=== PATIENT | male | born 1975 | race Caucasian/White ===

== ENCOUNTER → 2019-08-25 14:44 | Outpatient (BNVA) | payer OTHER, SELFPAY | PROVIDERS: PCP Emergency Medicine Emergency Medical Services; Referring Provider Emergency Medicine Emergency Medical Services; Visit Provider Orthopaedic Surgery | DX: M25.512 Pain in left shoulder (principal) | CPT/HCPCS: 73030 ==

== ENCOUNTER 2019-09-01 14:43 | Outpatient (CLI) | payer OTHER, SELFPAY ==
--- NOTE | 2019-09-01 15:34 | CT_ITS ---
WS: [id number] CT LEFT KNEE, NONCONTRAST HISTORY: PAIN TO MULTIPLE SITES Technique: All CT scans at [facility] use at least one of these dose optimization techniq ues: automated exposure control; mA and/or kV adjustment per patient size (includes targeted exams wh ere dose is matched to clinical indication); or iterative reconstruction. DLP: 961.05 mGy-cm. COMPARISON: None available. Normal orientation of the patella with respect to the femur. No fractures. No osteoblastic or osteoly tic lesions. Very slight lateral subluxation of the patella. No osteochondral lesion or loose body. T iny subchondral cyst noted in the lateral tibial plateau. Proximal fibula is normal. No joint effusion. CT/CT knee LT wo con* [id number] IMPRESSION: 1. Unremarkable CT LEFT knee. No acute or healing fractures. 2. Very slight lateral subluxation of the patella may be due to positioning.
--- NOTE | 2019-09-01 15:34 | CT_ITS ---
WS: [id number] CT LEFT ELBOW HISTORY: PAIN TO MULTIPLE SITES Technique: All CT scans at [facility] use at least one of these dose optimization techniq ues: automated exposure control; mA and/or kV adjustment per patient size (includes targeted exams wh ere dose is matched to clinical indication); or iterative reconstruction. DLP: 452.93 mGy-cm. COMPARISON: None available. No displacement, healing or acute fractures. No significant joint space narrowing or erosions. No sof t tissue abnormalities. No osteophyte formation. Muscles are normal size with no atrophy. CT/CT elbow LT wo con* [id number] IMPRESSION: Normal CT LEFT elbow. No fractures or inflammatory arthropathy.
--- NOTE | 2019-09-01 15:34 | CT_ITS ---
WS: [id number] CT LEFT SHOULDER, NONCONTRAST HISTORY: PAIN TO MULTIPLE SITES Technique: All CT scans at [facility] use at least one of these dose optimization techniq ues: automated exposure control; mA and/or kV adjustment per patient size (includes targeted exams wh ere dose is matched to clinical indication); or iterative reconstruction. DLP: 780.79 mGycm COMPARISON: Radiographs 08/25/2019. Subchondral cystic changes are noted over the superior humeral head. No fractures or healed fractures . Humeral head is normally seated at the glenoid. Mild narrowing of the glenohumeral and AC joint. No rib fractures. The visualized lung is clear. No joint effusion. CT/CT shoulder LT wo con* [id number] IMPRESSION: 1. Mild degenerative changes at the glenohumeral joint and AC joint. 2. No acute or healing fracture. 3. Moderate subchondral cystic changes at the humeral head is chronic.
== END 2019-09-01 14:44 | disposition home or self-care (01) ==
PROVIDERS: PCP Emergency Medicine Emergency Medical Services; Visit Provider Emergency Medicine Emergency Medical Services
DX: M19.012 Primary osteoarthritis, left shoulder (principal); M25.512 Pain in left shoulder; M25.562 Pain in left knee; M25.522 Pain in left elbow
CPT/HCPCS: 73200; 73700

== ENCOUNTER 2019-09-01 15:22 | Outpatient (CLI) | payer OTHER, SELFPAY | END 2019-09-01 15:23 | disposition home or self-care (01) | LOC: RADSHAW 15:25 | PROVIDERS: PCP Emergency Medicine Emergency Medical Services; Visit Provider Orthopaedic Surgery | DX: S46.912A Strain of unspecified muscle, fascia and tendon at shoulder and upper arm level, left arm, initial encounter (principal); X58.XXXA Exposure to other specified factors, initial encounter ==

== ENCOUNTER 2019-09-08 11:00 | Outpatient (CLI) | payer OTHER, SELFPAY ==
--- NOTE | 2019-09-08 11:08 | MR_ITS ---
WS: [id number] MRI left shoulder, 09/08/2019 Clinical Data: STRAIN OF LEFT SHOULDER Comparison: CT left shoulder, 09/01/2019, left shoulder x-ray, 08/25/2019. Findings: No rotator cuff tear is seen. Acromioclavicular joint appears to be normal with no impingement or ost eoarthritis. The glenoid labrum is intact with no tear or displacement. There is deformity of the insertion of the rotator cuff suggestive of Hill-Sachs deformity. There are small synovial cysts at the insertion of the rotator cuff. The biceps tendon resides within the bicipital groove and there is no displacement evidence of tendin itis or fluid in the tendon sheath. MR/MR shoulder LT wo con* [id number] Impression: 1. Deformity at the insertion of the greater tuberosity suggestive of Hill-Sach s deformity. 2. Small synovial cysts in humeral head at the insertion of the rotator cuff. 3. Negative for rotator cuff tear. 4. Negative for glenoid labral tear or displacement. 5. Negative for biceps tendinitis or tear.
== END 2019-09-08 11:01 | disposition home or self-care (01) ==
LOC: MRI 11:05
PROVIDERS: PCP Emergency Medicine Emergency Medical Services; Visit Provider Orthopaedic Surgery
DX: S46.912A Strain of unspecified muscle, fascia and tendon at shoulder and upper arm level, left arm, initial encounter (principal); X58.XXXA Exposure to other specified factors, initial encounter; M71.312 Other bursal cyst, left shoulder
CPT/HCPCS: 73221

== ENCOUNTER → 2019-09-21 14:44 | Outpatient (BNVA) | payer OTHER, SELFPAY | PROVIDERS: PCP Emergency Medicine Emergency Medical Services; Referring Provider Emergency Medicine Emergency Medical Services; Visit Provider Specialist | DX: M25.562 Pain in left knee (principal) | CPT/HCPCS: 73560; 73565 ==

== ENCOUNTER → 2019-09-24 09:45 | Outpatient (BNVA) | payer OTHER, SELFPAY | PROVIDERS: PCP Emergency Medicine Emergency Medical Services; Referring Provider Emergency Medicine Emergency Medical Services; Visit Provider Specialist | DX: M25.522 Pain in left elbow (principal) | CPT/HCPCS: 73080 ==

== ENCOUNTER 2019-09-28 14:28 | Outpatient (CLI) | payer OTHER, SELFPAY ==
--- NOTE | 2019-09-28 14:37 | MR_ITS ---
WS: [id number] MRI LEFT KNEE NONCONTRAST TECHNIQUE: Axial PD, coronal PD fat sat, coronal PD, sagittal PD, and sagittal PD fat-sat images obta ined. CLINICAL INFORMATION: PAIN COMPARISON: CT September 01, 2019 FINDINGS: Anterior cruciate ligament is normal. Normal posterior cruciate ligament. Distal quadriceps and brannon la tendons are intact. Hypertrophic patella. Trace prepatellar soft tissue edema. Small amount of chronic appearing signal abnormality involving the posterior horn medial meniscus. La teral meniscus is normal. No acute appearing meniscal tears. Normal patella. No significant chondroma lacia patella. Normal medial and lateral patellar retinaculum. Normal popliteal fossa. Medial and lat eral collateral ligaments are intact. MR/MR knee LT wo con* [id number] IMPRESSION: 1. Normal anterior and posterior cruciate ligaments. 2. No acute appearing meniscal tears. Small amount of chronic appearing signal normality involving the posterior horn medial meniscus. 3. Normal patella and tibial plateau. 4. Normal medial and lateral collateral ligaments.
== END 2019-09-28 14:29 | disposition home or self-care (01) ==
LOC: RADWPI 14:32
PROVIDERS: PCP Emergency Medicine Emergency Medical Services; Visit Provider Specialist
DX: M25.562 Pain in left knee (principal)
CPT/HCPCS: 73721

== ENCOUNTER 2019-10-12 07:44 | Outpatient (CLI) | payer OTHER, SELFPAY ==
--- NOTE | 2019-10-12 08:23 | MR_ITS ---
WS: [id number] MRI LEFT elbow, noncontrast. Multiplanar, multisequence imaging is performed of the LEFT elbow. COMPARISON: LEFT elbow radiograph 09/24/[address] 09/01/2019 Study is degraded by motion artifact. No marrow edema or fractures. Normal alignment at the elbow radha nt. There is a small amount of fluid at the joint. No loose bodies are evident within the fluid. No m uscle edema or atrophy. Biceps tendon in the brachial radialis are normal. There is some increased T2 signal in the anconeus muscle and tendon over the posterior radial head and lateral femoral condyle. Extensor tendon does ap pear to be intact. No edema within the flexor tendons. MR/MR elbow LT wo con* [id number] IMPRESSION: 1. Small amount of fluid at the elbow joint. 2. No fracture or marrow edema. 3. There is a small amount of increased signal and fluid in the anconeus muscl e and partial tear suspected at its insertion to the lateral epicondyle. No ass ociated evidence for lateral epicondylitis which is commonly associated with in jury to the anconeus muscle. 4. Study is limited by motion.
== END 2019-10-12 07:45 | disposition home or self-care (01) ==
LOC: RADWPI 07:48
PROVIDERS: PCP Emergency Medicine Emergency Medical Services; Visit Provider Specialist
DX: M25.522 Pain in left elbow (principal); M25.422 Effusion, left elbow
CPT/HCPCS: 73221

== ENCOUNTER → 2020-01-13 16:03 | Outpatient (BNVA) | payer OTHER, SELFPAY | PROVIDERS: PCP Emergency Medicine Emergency Medical Services; Visit Provider Podiatrist Foot & Ankle Surgery | DX: M79.671 Pain in right foot (principal) | CPT/HCPCS: 73630 ==

== ENCOUNTER 2020-01-14 20:00 | Outpatient (CLI) | payer OTHER, SELFPAY | END 2020-01-14 20:01 | disposition home or self-care (01) | LOC: SLEEP 01-15 09:44 | PROVIDERS: PCP Emergency Medicine Emergency Medical Services; Visit Provider Emergency Medicine Emergency Medical Services | DX: R06.83 Snoring (principal); R53.83 Other fatigue | CPT/HCPCS: 95810 ==

== ENCOUNTER 2020-11-13 21:45 | Emergency (ER) | payer OTHER, MEDICAID, SELFPAY ==
[2020-11-13 21:50] VITALS: BP 123/85; PULSE 90; RESP 16; TEMP 37.1; O2SAT 98; BMI 23.6
--- NOTE | 2020-11-13 21:55 | W.ED.SKABFB ---
HPI - Skin/Abscess/Foreign Bdy General: Chief complaint: Skin/Abscess/Foreign Body Stated complaint: ABSCESS ON BACK OF HEAD/THINKS MAYBE A SPIDER BITE Time Seen by Provider: 11/13/20 21:49 History of Present Illness: HPI narrative: Patient is a 45-year-old male comes to the ED with possible skin infection/spider bite on back of head. Patient says on he noticed he had a sore red bump on the mid occipital region of scalp. He says over the past couple days it has continued to get larger and more painful and red. He reports some minimal purulent drainage. Associated symptoms: Deny chills, fever(s), nausea or vomiting Review of Systems Const: Denies: fever(s), chills or fatigue Eyes: Denies: change in vision or eye discomfort ENMT: Denies: throat pain, odynophagia, nasal discharge or nasal congestion Card: Denies: chest pain, palpitations, edema, swelling of feet/ankles, dyspnea on exertion or orthopnea Resp: Denies: dyspnea, productive cough or non-productive cough GI: Denies: abdominal pain, nausea, vomiting, diarrhea, constipation or hematochezia : Denies: flank pain, difficulty urinating, dysuria or hematuria Musc: Denies: neck pain, back pain or extremity swelling Skin/Breast: Reports: new lesions (On back of scalp likely spider bite.); Denies: rash Neuro: Denies: headache(s), numbness in extremities or weakness in extremities PFS ED PFSH: Social History Smoking and tobacco status: former smoker Alcohol intake: former Physical Exam Const: COMMON NORMALS: no acute distress, patient oriented x3, healthy appearing and alert GENERAL APPEARANCE: cooperative and comfortable HENMT: COMMON NORMALS: normocephalic HEAD & SCALP: normocephalic and scalp lesion left occipital other (Occipital region of scalp?erythema, warmth with small purulent pocket in center of lesion. Tender to palpation. Lesion is indurated and nonfluctuant.) Head lesion size: 1.5 cm MOUTH: Normal oral and palatal mucosa present THROAT: posterior oropharynx normal and uvula midline Neck/C-Spine: COMMON NORMALS: supple GENERAL: Yes normal visual inspection Resp: COMMON NORMALS: normal respiratory effort, No retractions, No use of accessory muscles and clear to auscultation bilaterally AUSCULTATION: clear to auscultation bilaterally Cardio: COMMON NORMALS: regular rate, regular rhythm, S1 normal heart sound present, S2 normal heart sound present, No gallops present (Cardio), No clicks present (Cardio), No murmurs present (Cardio) and Peripheral pulses 2+ throughout RATE: regular rate RHYTHM: regular rhythm HEART SOUNDS: S1 normal heart sound present and S2 normal heart sound present PERIPHERAL PULSES: Peripheral pulses 2+ throughout GI: COMMON NORMALS: Normal to inspection, nondistended, normoactive bowel sounds present, Soft to palpation, non-tender and no masses PALPATION: Yes Soft to palpation : COMMON NORMALS: Yes no CVA tenderness BLADDER/KIDNEY EXAM: Yes no CVA tenderness Back/Pelvis: COMMON NORMALS: no CVA tenderness Extremity: COMMON NORMALS: normal to inspection Neuro: COMMON NORMALS: patient oriented x3 and moves all extremities SENSORIUM/ORIENTATION: Yes alert Skin: NARRATIVE SKIN EXAM: Occipital region of scalp?erythema, warmth with small purulent pocket in center of lesion. Tender to palpation. Lesion is indurated and nonfluctuant. Lesion findings suggestive of potential spider bite with developing cellulitis. GENERAL SKIN EXAM: dry skin Course Vital Signs: Vital signs: Vital Signs Temperature 98.7 F 11/13/20 21:50 Pulse Rate 90 11/13/20 21:50 Respiratory Rate 16 11/13/20 21:50 Blood Pressure 123/85 11/13/20 21:50 Pulse Oximetry 98 11/13/20 21:50 MDM - Skin/Abscess/Foreign Bdy MDM Narrative: Medical decision making narrative: Patient is a 44-year-old male comes to the ED with possible spider bite on occipital region of scalp. Exam findings show lesion on scalp that is indurated nonfluctuant. There is erythema, warmth and small purulent pocket in center of lesion. Tender to palpation. Lesion findings suggestive of potential spider bite with developing cellulitis. Patient was put on a prescription for Bactrim and mupirocin ointment. Patient told to follow-up with PCP in 7 days for reevaluation. Return to ED precautions given. Patient understood and agree with plan. Discharge Plan Discharge Patient Disposition: Home Clinical Impression: Spider bite Qualifiers: Encounter type: initial encounter Injury intent: accidental or unintentional Qualified Code(s): T63.301A - Toxic effect of unspecified spider venom, accidental (unintentional), initial encounter Cellulitis Qualifiers: Site of cellulitis: head Qualified Code(s): L03.811 - Cellulitis of head [any part, except face] Condition: Stable Prescriptions: New Bactrim DS 800-160 mg tablet 1 tab PO BID 7 Days Qty: 14 RF: 0 mupirocin 2 % ointment 1 applic topical BID Qty: 15 RF: 0 No Action cyclobenzaprine 10 mg tablet 10 mg PO TID RF: 0 bupropion HCl 75 mg tablet 75 mg PO QID RF: 0 ibuprofen 800 mg tablet 800 mg PO TID RF: 0 citalopram 40 mg tablet 40 mg PO ONCE RF: 0 Humira 40 mg/0.8 mL syringe kit 40 mg SUBCUT Q14D RF: 0 hydrocodone-acetaminophen [[place]] 5-325 mg tablet 1 tab PO Q8H PRNRF: 0 (DME) Walking high ankle boot with metatarsal bar See Rx Instructions .Route .MEDSUPPLY Qty: 1 RF: 0 (DME) Bilateral Foot Orthoses See Rx Instructions .Route .MEDSUPPLY Qty: 1 RF: 0 Discharge Orders: Discharge ED (Routine); Ordered 11/13/20 Ordered By: Toy Marshall Referrals: Sridhar Membreno DO [Primary Care Provider] - Discharge Diet: Regular Discharge Activity: Resume usual activity Patient Instructions: Cellulitis (ED), Brown Recluse Spider Bite (ED) Activity Restrictions/Additional Instructions: Follow-up with medical provider as directed in 7 to 10 days for reevaluation. Take medications as prescribed. Apply heat or cold pack to help with symptoms. Take your previously prescribed pain medication or Tylenol or ibuprofen for any pain. Return to the ER or your medical provider if condition worsens. Please read and understand discharge instructions. If any questions, please ask. Coding Level of Care Code ED Network Architect Manager for Scarlett Fwalejandro Exam Comprehensive
[2020-11-13] MEDS: sulfamethoxazole-trimeth DS 160-800 mg Tablet 1 TAB PO (22:23)
== END 2020-11-13 22:27 | disposition home or self-care (01) ==
PROVIDERS: Emergency Provider Physician Assistant; PCP Emergency Medicine Emergency Medical Services
DX: T63.301A Toxic effect of unspecified spider venom, accidental (unintentional), initial encounter (principal); L03.811 Cellulitis of head [any part, except face]; Z87.891 Personal history of nicotine dependence
CPT/HCPCS: 99282

== ENCOUNTER → 2020-11-28 13:13 | Outpatient (BNVA) | payer OTHER, SELFPAY | PROVIDERS: PCP Emergency Medicine Emergency Medical Services; Visit Provider Specialist | DX: G43.711 Chronic migraine without aura, intractable, with status migrainosus (principal); M47.812 Spondylosis without myelopathy or radiculopathy, cervical region; R20.0 Anesthesia of skin; R20.2 Paresthesia of skin; Z87.891 Personal history of nicotine dependence | CPT/HCPCS: 99204 ==

== ENCOUNTER → 2020-12-15 14:20 | Outpatient (BNVA) | payer OTHER, SELFPAY | PROVIDERS: PCP Emergency Medicine Emergency Medical Services; Visit Provider Specialist | DX: G43.709 Chronic migraine without aura, not intractable, without status migrainosus (principal); Z87.891 Personal history of nicotine dependence | CPT/HCPCS: 64615; J0585 ==

== ENCOUNTER 2021-02-17 09:26 | Outpatient (CLI) | payer OTHER, SELFPAY ==
--- NOTE | 2021-02-17 09:36 | MR_ITS ---
WS: [id number] MRI CERVICAL SPINE with and without contrast. HISTORY: R20.0 - Anesthesia of skin COMPARISON: None available. Technique: Multiplanar, multisequence with and without contrast imaging of the cervical spine. Straightening of the normal cervical lordosis with slight reversal centered at C5. No marrow edema or acute fracture. Very mild chronic anterior wedging of C5 and C6. C5 retrolisthesis by 3 mm contacts and slightly deforms the ventral cord. Signal within the cervical cord is normal. Visualized posterior fossa is unremarkable. Craniocervical junction, C1 and C2 relationship, odontoid process and soft tissues are normal. C2-C3: Bony osteophyte extends into the RIGHT foramen causing a moderate stenosis. No stenosis on the LEFT. C3-C4: Large disc osteophyte complex in the LEFT foramen causing displacement of the nerve roots and severe LEFT foraminal stenosis. C4-C5: Diffuse osteophytic ridging without stenosis. C5-C6: Mild annular disc bulging. There is diffuse osteophytic ridging encroaching upon the ventral t hecal sac. Moderate-sized disc osteophyte complex in the RIGHT foramen. Moderate RIGHT foraminal and mild LEFT foraminal stenosis. Mild central stenosis due to the osteophytic ridging and disc disease. C6-C7: Diffuse annular disc bulging and osteophytic ridging. Disc osteophyte complexes and the neural foramen. Mild central with severe bilateral foraminal stenosis. C7-T1: Normal. No discitis or osteomyelitis. No enhancing cord lesions. MR/MR cervical spine wo/w [id number] IMPRESSION: 1. Reversal of the normal cervical lordosis at C5-6 with osteophyte contact on the ventral thecal sac. 2. Severe bilateral foraminal stenosis at C6-7 due to disc and osteophyte dise ase with mild central stenosis. 3. Moderate RIGHT foraminal bony stenosis at C2-3. 4. Severe LEFT foraminal stenosis at C3-4 due to disc osteophyte complex. 5. Moderate RIGHT and mild LEFT foraminal stenosis and mild central stenosis a t C5-6. Significant disc osteophyte complex in the RIGHT foramen. 6. No enhancing masses, discitis or osteomyelitis.
[2021-02-17] MEDS: gadobenate dimeglumine 20 mL vial IV (10:29)
== END 2021-02-17 09:27 | disposition home or self-care (01) ==
LOC: RADSHAW 09:32
PROVIDERS: PCP Emergency Medicine Emergency Medical Services; Visit Provider Specialist
DX: R20.0 Anesthesia of skin (principal); M48.02 Spinal stenosis, cervical region; M25.78 Osteophyte, vertebrae
CPT/HCPCS: 72156; A9577

== ENCOUNTER → 2021-03-09 10:40 | Outpatient (BNVA) | payer OTHER, SELFPAY | PROVIDERS: PCP Emergency Medicine Emergency Medical Services; Visit Provider Specialist | DX: G43.709 Chronic migraine without aura, not intractable, without status migrainosus (principal); M47.812 Spondylosis without myelopathy or radiculopathy, cervical region; Z71.89 Other specified counseling; Z87.891 Personal history of nicotine dependence | CPT/HCPCS: 64615; 99214; 99215; J0585 ==

== ENCOUNTER 2021-03-13 13:27 | Outpatient (CLI) | payer OTHER, SELFPAY ==
--- NOTE | 2021-03-13 13:34 | US_ITS ---
WS: [id number] ULTRASOUND THYROID TECHNIQUE: Ultrasound of the thyroid. CLINICAL INFORMATION: FOLLOW UP ON THYROID NODULE COMPARISON: None. FINDINGS: Thyroid: Right and left thyroid lobes are normal in size and echotexture. No thyroid nodules are pres ent. Right thyroid lobe: 4.7 cm x 1.8 cm x 1.4 cm Left thyroid lobe: 4.6 cm x 1.7 cm x 1.2 cm. Isthmus: 0.2 mm. Cervical lymphadenopathy: No lymphadenopathy. Incidental cervical lymph nodes with preserved fatty hi lum. US/US thyroid [id number] IMPRESSION: Normal thyroid ultrasound examination.
== END 2021-03-13 13:28 | disposition home or self-care (01) ==
PROVIDERS: PCP Emergency Medicine Emergency Medical Services; Visit Provider Emergency Medicine Emergency Medical Services
DX: E04.1 Nontoxic single thyroid nodule (principal)
CPT/HCPCS: 76536

== ENCOUNTER → 2021-04-13 08:12 | Outpatient (BNVA) | payer OTHER, SELFPAY | PROVIDERS: PCP Emergency Medicine Emergency Medical Services; Referring Provider Specialist; Visit Provider Orthopaedic Surgery | DX: M47.812 Spondylosis without myelopathy or radiculopathy, cervical region (principal) | CPT/HCPCS: 72050 ==

== ENCOUNTER → 2021-05-01 11:19 | Outpatient (BNVA) | payer OTHER, SELFPAY | PROVIDERS: PCP Emergency Medicine Emergency Medical Services; Visit Provider Orthopaedic Surgery | DX: Z01.812 Encounter for preprocedural laboratory examination (principal); Z20.822 Contact with and (suspected) exposure to COVID-19 | CPT/HCPCS: 87635 ==

== ENCOUNTER 2021-05-05 05:53 | Day surgery (SDC) | payer OTHER, SELFPAY ==
[2021-05-03 09:39] VITALS: BMI 23.6
--- NOTE | 2021-05-03 16:03 | ANES.PREANE2 ---
Pre-Anesthetic Assessment Pre-Anesthetic Assessment: Height/Weight: Height 1.75 m Weight 72.575 kg Preop Diagnosis: cervical spondylosis with myelopathy Proposed Procedure: Operation Date: 05/05/21 07:00 Proposed Procedures p Anterior Cervical Discectomy & Fusion 60208 69894 C5/6 C6/7 37845 76093 89165 M47.812(Not Applicable) - Michael Quintanilla, DO Was Beta Gerald taken within 24 hours: N/A Was Clonidine taken within 24 hours: N/A Social: Social History: Tobacco and No alcohol Exam: Pre-Anes Outpt Exam: alert, oriented x 3 and regular rate & rhythm Airway: Submandibular: WNL Cervical ROM: WNL (Some pain) MP: 2 Dentition: Chipped Additional comments: Poor dentition Pulmonary: Pulmonary: COPD Musc/skel: Musc/skel: OA/DJD Neuropsych: Neuropsych: HERNANDEZ Anesthetic Plan: ASA status: 3 Anesthesia: General Risk of > 500 ml blood loss (7ml/kg in children): No PFSH Anesthesia PFSH: Social History Smoking and tobacco status: former smoker Alcohol intake: former History of recent travel: No Data Anesthesia Cardiac Studies: No Data to Display
[2021-05-05] VITALS (9 sets, daily range): BP systolic 101–116; BP diastolic 63–82; PULSE 75–84; RESP 13–18; TEMP 36.3–36.8; O2SAT 96–100
--- NOTE | 2021-05-05 | XR_ITS ---
WS: [id number] Cervical spine, C-arm fluoroscopy, 05/05/2021 Clinical Data: ACDF Comparison: None. Findings: Dr. Quintanilla performed an anterior cervical disc fusion at C5-C7 with disc spacers at C5-C6 an d C6-C7. XR/XR cervical spine 3V* [id number] Impression: Anterior cervical disc fusion C5-C7 with corresponding disc spacers.
--- NOTE | 2021-05-05 | SCC_ITS ---
Procedure Done: 1. Anterior diskectomy C5/6 2. Anterior discectomy C6/7 3. Insertion of cage C5/6 4. Insertion of Cage C6/7 5. Instrumentation with anterior plate from C5-C7 6. Use of allograft 8.5 seconds of fluoroscopic guidance, for a cumulative dose of 0.88 mGy, was provided to Dr. Quintanilla by the radiology department. C-arm images of the cervical spine were saved for the patient's permanent record. KATIED
--- NOTE | 2021-05-05 06:32 | P.ANESUD_ITS ---
Pre-Anesthetic Update Pre-Anesthetic Assessment: Date of Surgery/Procedure: 05/05/21 Preop Daphne gnosis: cervical spondylosis with myelopathy Proposed Procedure: Operation Date: 05/05/21 07:00 Proposed Procedures p Anterior Cervical Discectomy & Fusion 05518 38928 C5/6 C6/7 39888 17157 22036 M47.812(Not Applicable) - Michael Quintanilla, DO Any changes to Pre-Anesthetic Assessment?: No Last Intake: Intake Last Liquid Date 05/04/21 Last Liquid Time 21:00 Last Solid Date 05/04/21 Last Solid Time 20:00 Vitals: Temperature 98.2 F 05/05/21 06:07 Temperature Source Temporal Artery S can 05/05/21 06:07 Pulse Rate 78 05/05/21 06:07 Respiratory Rate 18 05/05/21 06:07 Blood Pressure 116/82 05/05/21 06:07 Blood Pressure Jennifer n 93 05/05/21 06:07 Pulse Oximetry 96 05/05/21 06:07 Oxygen Delivery Me thod 05/05/21 06:07 Exam: Pre-Anes Outpt Exam: alert, oriented x 3, clear to auscultation bi laterally and regular rate & rhythm Cardiac Studies: No Data to Display
[2021-05-05] MEDS: sodium chloride 0.9% 1,000 ML 30 ML IV (06:46)
--- NOTE | 2021-05-05 06:55 | W.PM.OPSUD ---
Surgery/Procedure H&P Update DATE OF PROCEDURE: May 05, 2021 DATE H&P PERFORMED: 04/13/21 H&P UPDATE INFORMATION: I have reviewed H&P completed within last 30 days, I have examined patient prior to procedure and No changes to prior documentation PREOP DIAGNOSIS: cervical spondylosis with myelopathy PLANNED PROCEDURE: Operation Date: 05/05/21 07:00 Proposed Procedures p Anterior Cervical Discectomy & Fusion 29251 40308 C5/6 C6/7 60858 63845 00515 M47.812(Not Applicable) - Michael Quintanilla DO
--- NOTE | 2021-05-05 09:03 | PM.OP ---
Operative Report Date of procedure: May 05, 2021 Pre-op Diagnosis: cervical spondylosis with myelopathy Post-op diagnosis: same Procedure Done: 1. Anterior diskectomy C5/6 2. Anterior discectomy C6/7 3. Insertion of cage C5/6 4. Insertion of Cage C6/7 5. Instrumentation with anterior plate from C5-C7 6. Use of allograft Surgeon: Michael Quintanilla Anesthesia: General Estimated blood loss (mL): 20 Condition: stable Disposition: PACU Procedure: 1. Anterior diskectomy C5/6 2. Anterior discectomy C6/7 3. Insertion of cage C5/6 4. Insertion of Cage C6/7 5. Instrumentation with anterior plate from C5-C7 6. Use of allograft The patient was taken to the operating room, where he underwent general endotracheal anesthesia without complications. He was then positioned supine on the operating table, and all areas of impingement were well padded. The arms were carefully padded and tucked at his sides. A roll was placed between the shoulder blades.. An x-ray was done to determine the appropriate level for the skin incision. The entire neck was then sterilely prepped and draped in the usual fashion. Neuromonitoring was attached prior to prepping. A transverse skin incision was made and carried down to the platysma muscle. This was then split in line with its fibers. Blunt dissection was carried down medial to the carotid sheath and lateral to the trachea and esophagus until the anterior cervical spine was visualized. A needle was placed into a disc and an x-ray was done to determine its location. The longus colli muscles were then elevated bilaterally with the electrocautery unit. Self-retaining retractors were placed deep to the longus colli muscle. Attention was brought to the C5/6 level that was confirmed on x-ray. A caspar pin was placed into the C5 vertebrae and the C6 vertebrae. The disk space was then distracted. The microscope was then brought in. A radical anterior discectomies were performed at C5/6. This included complete removal of the anterior annulus, nucleus, and posterior annulus. The posterior longitudinal ligament was removed as were the posterior osteophytes. Foraminotomies were then accomplished bilaterally. This was done using a high speed tristan, kerrison rongeurs and curretes Once all of this was accomplished, the curved currette was used to check for any residual compression. The central canal was wide open as were the foramen. A high-speed bur was used to remove the cartilaginous endplates above and below the interspace. Bleeding cancellous bone was exposed. The disc space were measured and appropriate size cage were placed sterilely onto the field. Allograft graft was packed into the cages. The cage was then placed and there was good juxtaposition against the bleeding decorticated surfaces and good distraction of each interspace. Attention was brought to the next interspace. The [place] pins were removed. Bone wax was used to prevent any bleeding from occurring at the pin sites. Attention was brought to the C6/7 level that was confirmed on x-ray. A caspar pin was placed into the C6 vertebrae and the C7 vertebrae. The disk space was then distracted. The microscope was then brought in. A radical anterior discectomies were performed at C6/7. This included complete removal of the anterior annulus, nucleus, and posterior annulus. The posterior longitudinal ligament was removed as were the posterior osteophytes. Foraminotomies were then accomplished bilaterally. This was done using a high speed tristan, kerrison rongeurs and curretes Once all of this was accomplished, the curved currette was used to check for any residual compression. The central canal was wide open as were the foramen. A high-speed bur was used to remove the cartilaginous endplates above and below the interspace. Bleeding cancellous bone was exposed. The disc space were measured and appropriate size cage were placed sterilely onto the field. Allograft graft was packed into the cages. The cage was then placed and there was good juxtaposition against the bleeding decorticated surfaces and good distraction of each interspace. Attention was brought to the next interspace. {copy description of discectomy to cage placement} The [place] pins were removed. Bone wax was used to prevent any bleeding from occurring at the pin sites The appropriate size anterior cervical locking plate was chosen and bent into gentle lordosis. One screws were then placed into each of the vertebral bodies at C5, C6 and C7. There was excellent purchase. A final x-ray was done confirming good position of the hardware and Cages. The locking screws were then applied, also with excellent purchase. Following a final copious irrigation, there was good hemostasis and no dural leaks. The carotid pulse was strong. The wounds were then closed in layers using 2-0 Vicryl suture for the platysma muscle, 2-0 Vicryl suture for the subcutaneous tissue, and 4-0 monocryl suture in a subcuticular skin closure. Glue was placed followed by application of a sterile dressing. The drain was hooked to bulb suction. A soft collar was applied. The patient was then carefully returned to the supine position on his hospital bed where he was reversed and extubated and taken to the recovery room having tolerated the procedure well.
--- NOTE | 2021-05-05 10:12 | ANE.PACU2 ---
Inpatient post-anesthesia follow up: Airway intact: Yes Vital signs: Temperature 97.6 F Pulse Rate 84 Respiratory Rate 14 Blood Pressure 112/69 Pulse Oximetry 100 Oxygen Delivery Me thod Room Air Oxygen Flow Rate 2 Fraction of Inspir ed Oxygen Hydration adequate: Yes Nausea and vomiting: No Pain level: 2 Mental status: Baseline
[2021-05-05] MEDS: HYDROcodone-acetaminophen 5-325 mg Tablet 1 TAB PO (10:18)
== END 2021-05-05 10:55 | disposition home or self-care (01) ==
PROVIDERS: PCP Emergency Medicine Emergency Medical Services; Visit Provider Orthopaedic Surgery
PROC: 0RB30ZZ Excision of Cervical Vertebral Disc, Open Approach (ICD-10-PCS; CPT 22551; principal; 2021-05-05 07:00)
DX: M47.892 Other spondylosis, cervical region (principal); J44.9 Chronic obstructive pulmonary disease, unspecified; M19.90 Unspecified osteoarthritis, unspecified site; Z87.891 Personal history of nicotine dependence
CPT/HCPCS: 20931; 22551; 22552; 22845; 22853 ×2; 72040; 76000; 97760; C1713; C9359; J0690; J1100; J2250; J2310; J2405; J2704; J3010; J3490; J7030; L0174

== ENCOUNTER → 2021-06-01 09:46 | Outpatient (BNVA) | payer OTHER, SELFPAY | PROVIDERS: PCP Emergency Medicine Emergency Medical Services; Visit Provider Specialist | DX: G43.709 Chronic migraine without aura, not intractable, without status migrainosus (principal); M47.812 Spondylosis without myelopathy or radiculopathy, cervical region; Z71.89 Other specified counseling | CPT/HCPCS: 64615; 99213 ==

== ENCOUNTER → 2021-06-20 08:00 | Outpatient (BNVA) | payer OTHER, SELFPAY | PROVIDERS: PCP Emergency Medicine Emergency Medical Services; Visit Provider Orthopaedic Surgery | DX: M47.812 Spondylosis without myelopathy or radiculopathy, cervical region (principal); M47.12 Other spondylosis with myelopathy, cervical region; Z48.89 Encounter for other specified surgical aftercare | CPT/HCPCS: 72040 ==

== ENCOUNTER → 2021-08-22 08:28 | Outpatient (BNVA) | payer OTHER, SELFPAY | PROVIDERS: PCP Emergency Medicine Emergency Medical Services; Visit Provider Orthopaedic Surgery | DX: M47.12 Other spondylosis with myelopathy, cervical region; Z48.89 Encounter for other specified surgical aftercare | CPT/HCPCS: 72040 ==

== ENCOUNTER → 2021-09-25 13:08 | Outpatient (BNVA) | payer OTHER, SELFPAY | PROVIDERS: PCP Emergency Medicine Emergency Medical Services; Visit Provider Surgery | DX: Z01.812 Encounter for preprocedural laboratory examination (principal); Z20.822 Contact with and (suspected) exposure to COVID-19 | CPT/HCPCS: 87635 ==

== ENCOUNTER 2021-09-29 06:08 | Day surgery (SDC) | payer OTHER, SELFPAY ==
[2021-09-27 10:00] VITALS: BMI 23.6
[2021-09-29 06:35] VITALS: BP 124/75; PULSE 85; RESP 20; TEMP 36.8; O2SAT 98
[2021-09-29] MEDS: sodium chloride 0.9% 1,000 ML 30 ML IV (06:45)
--- NOTE | 2021-09-29 06:51 | ANES.PREANE2 ---
Pre-Anesthetic Assessment Height/Weight: Height 1.75 m Weight 72.575 kg Temp Pulse Resp BP Pulse Ox 98.2 F 85 20 H 124/75 98 09/29/21 06:35 09/29/21 06:35 09/29/21 06:35 09/29/21 06:35 09/29/21 06:35 Preop Diagnosis: Family history of colon cancer Operation Date: 09/29/21 07:30 Proposed Procedures p Colonoscopy 17717 Z80.00(Not Applicable) - Darwin Beard MD Familial anesthetic complications: wake up during procedure Was Beta Gerald taken within 24 hours: N/A Was Clonidine taken within 24 hours: N/A Last intake: Intake Last Liquid Date 09/28/21 Last Liquid Time 23:00 Last Solid Date 09/27/21 Last Solid Time 00:00 Social Tobacco (history quit 2018) Exam alert, oriented x 3, clear to auscultation bilaterally and regular rate & rhythm Airway Submandibular: within normal limits Cervical ROM: within normal limits Mallampati: Class I Dentition: full Pulmonary None reported CV/HEM None reported None reported Hepatic None reported GI None reported Metabolic None reported Musc/skel Lower Back Pain and Osteoarthritis/DJD recent neck surgery Neuropsych Depression Anesthetic Plan ASA status: 2 Anesthesia: MAC Risk of > 500 ml blood loss (7ml/kg in children): No Medications/Allergies Home Medications Medication Instructions Recorded Confirmed Last Taken Type bupropion HCl 75 mg tablet 75 mg PO QID tab 08/25/19 09/29/21 09/29/21 History ibuprofen 800 mg tablet 800 mg PO TID 08/25/19 09/29/21 09/28/21 History cyclobenzaprine 10 mg tablet 10 mg PO TID 09/21/19 09/29/21 09/27/21 History Bilateral Foot Orthoses #1 ea 01/18/20 09/29/21 Unknown Rx Walking high ankle boot with #1 ea 04/25/20 09/29/21 Unknown Rx metatarsal bar hydrocodone 5 mg-acetaminophen 325 1 tab PO Q8H PRN 04/25/20 09/29/21 09/29/21 History mg tablet ([place]) promethazine 25 mg tablet 25 mg PO TID PRN 11/28/20 09/29/21 Unknown History venlafaxine 75 mg tablet 37.5 mg PO QID 11/28/20 09/29/21 09/29/21 History acetaminophen-caffeine 500 mg-65 1 tab PO Q6H PRN 05/03/21 09/29/21 09/28/21 History mg tablet Allergies Allergy/AdvReac Type Severity Reaction Status Date / Time acetaminophen [From Percocet] Allergy nausea Verified 09/29/21 06:30 fluticasone [From Flonase] Allergy burning Verified 09/29/21 06:30 ketorolac Allergy non-effective, Verified 09/29/21 06:30 nausea oxycodone [From Percocet] Allergy nausea Verified 09/29/21 06:30 pravastatin Allergy unknown Verified 09/29/21 06:30 tramadol Allergy non-effective, Verified 09/29/21 06:30 irritable, nausea Current Medications Generic Name Dose Route Start Last Admin Trade Name Freq PRN Reason Stop Dose Admin Sodium Chloride 1,000 mls @ 30 mls/hr 09/29/21 06:30 09/29/21 06:45 Sodium Chloride 0.9% IV 30 mls/hr .Q24H [place] Administration PFSH Anesthesia Surgical History (Updated 08/22/21 @ 08:50 by Michael Quintanilla DO) History of cervical spinal surgery Social History Alcohol intake: former History of recent travel: No Data Anesthesia Cardiac Studies: No Data to Display
--- NOTE | 2021-09-29 08:09 | W.PM.OPSFHP ---
Same Day Surgery H&P Indication for Procedure/HPI DATE OF PROCEDURE: September 29, 2021 CHIEF COMPLAINT/INDICATIONFOR SURGICAL PROCEDURE: screening colonoscopy PREOP DIAGNOSIS: Family history of colon cancer PLANNED PROCEDURE: Operation Date: 09/29/21 07:30 Proposed Procedures p Colonoscopy 97400 Z80.00(Not Applicable) - Darwin Beard MD 07/27/21 This is a pleasant 46 years old gentleman referred to my practice to discuss colonoscopy patient reports back in 2007 had a bleeding episode and a colonoscopy was done showed normal findings per his description.? Currently denies bleeding per rectum and he reports history of colon cancer of his father at his late 50s. 09/29/2021 Patient comes today for screening colonoscopy ROS All systems have been reviewed negative except as per the above or per problem list Medications/Allergies* Home Medications Medication Instructions Recorded Confirmed Type bupropion HCl 75 mg tablet 75 mg PO QID tab 08/25/19 09/29/21 History ibuprofen 800 mg tablet 800 mg PO TID 08/25/19 09/29/21 History cyclobenzaprine 10 mg tablet 10 mg PO TID 09/21/19 09/29/21 History hydrocodone 5 mg-acetaminophen 325 1 tab PO Q8H PRN 04/25/20 09/29/21 History mg tablet ([place]) promethazine 25 mg tablet 25 mg PO TID PRN 11/28/20 09/29/21 History venlafaxine 75 mg tablet 37.5 mg PO QID 11/28/20 09/29/21 History acetaminophen-caffeine 500 mg-65 1 tab PO Q6H PRN 05/03/21 09/29/21 History mg tablet Allergies/Adverse Reactions Allergy/AdvReac Type Severity Reaction Status Date / Time acetaminophen [From Percocet] Allergy nausea Verified 09/29/21 08:10 fluticasone [From Flonase] Allergy burning Verified 09/29/21 08:10 ketorolac Allergy non-effective, Verified 09/29/21 08:10 nausea oxycodone [From Percocet] Allergy nausea Verified 09/29/21 08:10 pravastatin Allergy unknown Verified 09/29/21 08:10 tramadol Allergy non-effective, Verified 09/29/21 08:10 irritable, nausea Current Medications: Generic Name Dose Route Start Last Admin Trade Name Freq PRN Reason Stop Dose Admin Sodium Chloride 1,000 mls @ 30 mls/hr 09/29/21 06:30 09/29/21 06:45 Sodium Chloride 0.9% IV 30 mls/hr .Q24H [place] Administration Pertinent History/Comorbid Conditions* Surgical History (Updated 08/22/21 @ 08:50 by Michael Quintanilla DO) History of cervical spinal surgery Social History Alcohol intake: former History of recent travel: No Pertinent Exam Findings alert, oriented x 3 and procedure specific exam findings (Abdominal examination nontender nondistended soft) Recommendations Surgery/Procedure today (Colonoscopy with possible biopsy) Coding Level of Care Code Acute Wire Technician for Skipg Lala
[2021-09-29 08:35] VITALS: BP 102/68; PULSE 70; PULSE 73; RESP 18; TEMP 36.7; O2SAT 98
[2021-09-29 08:37] VITALS: BP 102/64
[2021-09-29 08:49] VITALS: BP 105/61; PULSE 69; RESP 18; TEMP 37.1; O2SAT 98
--- NOTE | 2021-09-29 15:28 | ANE.PACU2 ---
Inpatient post-anesthesia follow up: Airway intact: Yes Vital signs: Temperature 98.7 F Pulse Rate 69 Respiratory Rate 18 Blood Pressure 105/61 Pulse Oximetry 98 Oxygen Delivery Me thod Room Air Oxygen Flow Rate Fraction of Inspir ed Oxygen Hydration adequate: Yes Nausea and vomiting: No Pain level: 1 Mental status: Baseline
== END 2021-09-29 09:05 | disposition home or self-care (01) ==
PROVIDERS: PCP Emergency Medicine Emergency Medical Services; Visit Provider Surgery
PROC: 0DJD8ZZ Inspection of Lower Intestinal Tract, Via Natural or Artificial Opening Endoscopic (ICD-10-PCS; CPT 45378; principal; 2021-09-29 07:30)
DX: Z12.11 Encounter for screening for malignant neoplasm of colon (principal); Z80.0 Family history of malignant neoplasm of digestive organs; K57.30 Diverticulosis of large intestine without perforation or abscess without bleeding; F32.9 Major depressive disorder, single episode, unspecified; M19.90 Unspecified osteoarthritis, unspecified site; Z98.1 Arthrodesis status
CPT/HCPCS: 45378; J2704; J7030

== ENCOUNTER → 2021-11-21 07:56 | Outpatient (BNVA) | payer OTHER, SELFPAY | PROVIDERS: PCP Emergency Medicine Emergency Medical Services; Visit Provider Orthopaedic Surgery | DX: S29.012A Strain of muscle and tendon of back wall of thorax, initial encounter (principal); X58.XXXA Exposure to other specified factors, initial encounter; Z47.89 Encounter for other orthopedic aftercare; Z98.890 Other specified postprocedural states; Z98.1 Arthrodesis status | CPT/HCPCS: 72040; 99213 ==

== ENCOUNTER → 2022-01-22 14:59 | Outpatient (BNVA) | payer OTHER, SELFPAY | PROVIDERS: PCP Emergency Medicine Emergency Medical Services; Referring Provider Emergency Medicine Emergency Medical Services; Visit Provider Specialist | DX: M25.522 Pain in left elbow (principal) | CPT/HCPCS: 73080; 99213 ==

== ENCOUNTER → 2022-02-28 08:06 | Outpatient (BNVA) | payer OTHER, SELFPAY | PROVIDERS: PCP Emergency Medicine Emergency Medical Services; Referring Provider Specialist; Visit Provider Specialist | DX: M47.12 Other spondylosis with myelopathy, cervical region (principal); G56.12 Other lesions of median nerve, left upper limb | CPT/HCPCS: 95908; 95909 ==

== ENCOUNTER 2022-03-15 06:40 | Outpatient (CLI) | payer OTHER, SELFPAY ==
--- NOTE | 2022-03-15 07:15 | MR_ITS ---
WS: [id number] MRI LEFT ELBOW without CONTRAST. COMPARISON: 10/12/2019 Multiplanar, multisequence imaging is performed without contrast. The ulnar nerve is very difficult to visualize as a normal structure. On the sagittal and axial imagi ng a ulnar nerve is not identified in the cubital tunnel. There is some increased signal on the T2 se quences. On the sagittal image there are postoperative micrometallic artifacts in the expected locati on of the ulnar nerve. There is a small caliber appearing ulnar nerve which is not in the cubital emilio alona. I suspect the nerve may have been transposed intramuscular along the medial elbow. Normal nerve is not identified. There is also no evidence for increased T2 signal to suggest an acute injury. Increased T2 signal in the lateral collateral ligament and the adjacent common extensor tendon consis tent with a mild sprain. There is a small joint effusion with no marrow edema or fracture. No loose body identified. Biceps te ndon is normal course and caliber. No muscle atrophy or edema. MR/MR elbow LT wo con* [id number] IMPRESSION: 1. Postsurgical changes noted along the medial elbow. 2. A normal ulnar nerve is not identified in the cubital tunnel. Ulnar nerve m ay have been transposed as there are micrometallic artifacts in the soft tissue s adjacent to the medial epicondyle. A normal caliber ulnar nerve is not identi fied. There is also no evidence for an acute neuritis. 3. Mild sprain involving the lateral collateral ligament and adjacent common e xtensor tendon. 4. No fracture or marrow edema.
== END 2022-03-15 06:41 | disposition home or self-care (01) ==
LOC: RAD 06:40
PROVIDERS: PCP Emergency Medicine Emergency Medical Services; Visit Provider Specialist
DX: M25.522 Pain in left elbow (principal)
CPT/HCPCS: 73221

== ENCOUNTER → 2022-04-12 07:59 | Outpatient (BNVA) | payer OTHER, SELFPAY | PROVIDERS: PCP Emergency Medicine Emergency Medical Services; Referring Provider Specialist; Visit Provider Specialist | DX: G56.12 Other lesions of median nerve, left upper limb (principal) | CPT/HCPCS: 95860; 99202 ==

== ENCOUNTER → 2022-05-21 07:50 | Outpatient (BNVA) | payer OTHER, SELFPAY | PROVIDERS: PCP Emergency Medicine Emergency Medical Services; Visit Provider Specialist | DX: G95.9 Disease of spinal cord, unspecified (principal); M54.12 Radiculopathy, cervical region | CPT/HCPCS: 99214 ==

== ENCOUNTER → 2022-05-31 09:44 | Outpatient (BNVA) | payer OTHER, SELFPAY | PROVIDERS: PCP Emergency Medicine Emergency Medical Services; Visit Provider Orthopaedic Surgery | DX: M54.2 Cervicalgia (principal); Z98.1 Arthrodesis status | CPT/HCPCS: 72050; 99213; 99214 ==

== ENCOUNTER → 2022-06-13 13:53 | Outpatient (BNVA) | payer OTHER, SELFPAY | PROVIDERS: PCP Emergency Medicine Emergency Medical Services; Referring Provider Emergency Medicine Emergency Medical Services; Visit Provider Podiatrist Foot & Ankle Surgery | DX: L60.0 Ingrowing nail (principal) | CPT/HCPCS: 11750 ==

== ENCOUNTER → 2022-06-28 11:19 | Outpatient (BNVA) | payer OTHER, SELFPAY | PROVIDERS: PCP Emergency Medicine Emergency Medical Services; Visit Provider Podiatrist Foot & Ankle Surgery | DX: L60.0 Ingrowing nail (principal); Z98.890 Other specified postprocedural states | CPT/HCPCS: 11750; 99213 ==

== ENCOUNTER 2022-07-26 07:30 | Outpatient (CLI) | payer OTHER, SELFPAY ==
--- NOTE | 2022-07-26 08:00 | MR_ITS ---
WS: [id number] MRI CERVICAL SPINE NONCONTRAST HISTORY: radiating left arm pain COMPARISON: 02/17/2021 Technique: Multiplanar, multisequence noncontrast imaging of the cervical spine. Straightening and slight reversal of normal cervical lordosis. Reversal centered at C5. New anterior cervical fusion from C5 to C7 with interbody spacers. Signal within the cervical cord is normal. Visualized posterior fossa is unremarkable. Craniocervical junction, C1 and C2 relationship, odontoid process and soft tissues are normal. C2-C3: RIGHT foraminal osteophyte causing moderate stenosis similar to the prior study. C3-C4: Severe LEFT foraminal stenosis due to disc osteophyte complex and facet joint arthritis. Simil ar to the prior study. Mild central stenosis. C4-C5: Mild osteophytic ridging and facet arthritis. No stenosis. C5-C6: Mild osteophytic ridging with bilateral disc osteophyte complexes. Mild bilateral facet joint arthritis. There is mild central and bilateral foraminal stenosis. Slightly improved since the prior study. C6-C7: Diffuse annular disc bulging and osteophytic ridging. Moderate central with moderate to severe bilateral foraminal stenosis. Similar to the prior study. Mild facet arthritis. C7-T1: Normal. Paraspinal soft tissue are normal. MR/MR cervical spin wo con* [id number] IMPRESSION: 1. Since the prior examination patient is status post anterior C5-C7 cervical fusion with interbody spacers at C5-6 and C6-7. 2. Slight reversal centered at C5 remains. 3. Moderate central with moderate to severe bilateral foraminal stenosis at C6 -7. No progression. 4. Severe LEFT foraminal stenosis at C3-4, no change. 5. Mild central and bilateral foraminal stenosis at C5-6, slightly improved si nce the prior study.
== END 2022-07-26 07:31 | disposition home or self-care (01) ==
PROVIDERS: PCP Emergency Medicine Emergency Medical Services; Visit Provider Orthopaedic Surgery
DX: M54.12 Radiculopathy, cervical region (principal); G95.9 Disease of spinal cord, unspecified; M48.02 Spinal stenosis, cervical region
CPT/HCPCS: 11750; 72141; 99213

== ENCOUNTER → 2022-08-21 08:36 | Outpatient (BNVA) | payer OTHER, SELFPAY | PROVIDERS: PCP Emergency Medicine Emergency Medical Services; Visit Provider Orthopaedic Surgery | DX: M54.12 Radiculopathy, cervical region (principal) | CPT/HCPCS: 99214 ==

== ENCOUNTER 2022-09-17 09:56 | Inpatient (IN) | payer OTHER, SELFPAY ==
[2022-09-13 13:24] VITALS: BMI 23.6
--- NOTE | 2022-09-13 14:07 | P.ANESASSM_ITS ---
Pre-Anesthetic Assessment Height/Weight: Height 1.75 m Weight 72.575 kg Preop Diagnosis: Family history of colon cancer Operation Date: 09/17/22 07:00 Proposed Procedures s Cervical Decompression C5-7 72060, 32633, 69333, 01599,91130, M54.12(Not Applicable) - Michael Nimo Quintanilla, p Cervical Posterior Fusion C4-7(Not Applicable) - Michael Nimo Socorro, DO Familial anesthetic complications: none Was Beta Gerald taken within 24 hours: N/A Was Clonidine taken within 24 hours: N/A Social No alcohol and No tobacco (h/o smoking) Exam alert, oriented x 3, clear to auscultation bilaterally and regular rate & rhythm Airway Submandibular: within normal limits Cervical ROM: within normal limits Mallampati: Class II Dentition: chipped Pulmonary Chronic Obstructive Pulmonary Disease Musc/skel Lower Back Pain and Osteoarthritis/DJD Neuropsych Depression, Headache and Neuropathy chronic pain/opioid Anesthetic Plan ASA status: 3 Anesthesia: General Medications/Allergies Home Medications Medication Instructions Recorded Confirmed Last Taken Type bupropion HCl 75 mg tablet 75 mg PO QID 08/25/19 09/13/22 09/13/22 History ibuprofen 800 mg tablet 800 mg PO TID 08/25/19 09/13/22 09/13/22 History cyclobenzaprine 10 mg tablet 10 mg PO PRN 09/21/19 09/13/22 09/27/21 History Bilateral Foot Orthoses #1 ea 01/18/20 08/21/22 Unknown Rx Walking high ankle boot with #1 ea 04/25/20 08/21/22 Unknown Rx metatarsal bar hydrocodone 5 mg-acetaminophen 325 1 tab PO Q8H PRN Pain 04/25/20 09/13/22 09/13/22 History mg tablet ([place]) promethazine 25 mg tablet 25 mg PO PRN PRN Nausea 11/28/20 09/13/22 Unknown History venlafaxine 75 mg tablet 37.5 mg PO QID 11/28/20 09/13/22 09/13/22 History silver sulfadiazine 1 % topical 1 applic topical BID #50 grams 06/13/22 09/13/22 Unknown Rx cream (Silvadene) Intraoperative Neuromonitoring #1 ea 09/07/22 Unknown Rx Allergies Allergy/AdvReac Type Severity Reaction Status Date / Time acetaminophen [From Percocet] Allergy nausea Verified 09/13/22 13:18 fluticasone [From Flonase] Allergy burning Verified 09/13/22 13:18 ketorolac Allergy non-effective, Verified 09/13/22 13:18 nausea oxycodone [From Percocet] Allergy nausea Verified 09/13/22 13:18 pravastatin Allergy unknown Verified 09/13/22 13:18 tramadol Allergy non-effective, Verified 09/13/22 13:18 irritable, nausea PFSH Anesthesia Surgical History History of cervical spinal surgery Social History Smoking and tobacco status: never smoked Alcohol intake: former service: Yes status: Retired branch: [employer] Current occupational status: retired History of recent travel: No Data Anesthesia Cardiac Studies: No Data to Display
[2022-09-17] VITALS (19 sets, daily range): BP systolic 108–148; BP diastolic 62–98; PULSE 66–114; RESP 15–18; TEMP 36.1–37.1; O2SAT 93–100; BMI 23.6
[2022-09-17 06:16] LABS: Basophils # 0.1 10^3/uL (0.0-0.1); Basophils % 1.1 %; Eosinophils # 0.3 10^3/uL (0.0-0.8); Eosinophils % 5.9 %; Hematocrit 43.2 % (42.0-52.0); Hemoglobin 14.3 g/dL (11.7-16.6); Lymphocytes # 2.4 10^3/uL (0.8-4.8); Lymphocytes % 41.8 %; Mean Corpuscular HGB Conc 33.1 g/dL (30.0-36.0); Mean Corpuscular Volume 93.5 fl (80-94); Monocytes # 0.6 10^3/uL (0.2-0.9); Monocytes % 10.1 %; Neutrophils % 40.9 %; Nucleated Red Blood Cells % 0 %; Platelet Count 320 10^3/cmm (130-400); Red Blood Count 4.62 10^6/uL (4.1-5.3); Red Cell Distribution Width 12.8 % (12.1-15.1); White Blood Count 5.6 10^3/uL (4.0-10.0)
[2022-09-17] MEDS: sodium chloride 0.9% 1,000 ML 30 ML IV (06:16)
--- NOTE | 2022-09-17 06:45 | P.ANESUD_ITS ---
Pre-Anesthetic Update Pre-Anesthetic Assessment: Date of Surgery/Procedure: 09/17/22 Preop Daphne gnosis: cervical radiculopathy Proposed Procedure: Operation Date: 09/17/22 07:00 Proposed Procedures s Cervical Decompression C5-7 90783, 10112, 19453, 43408,17355, M54.12(Not Applicable) - Michael H Socorro, DO p Cervical Posterior Fusion C4-7(Not Applicable) - Michael H Socorro, DO Any changes to Pre-Anesthetic Assessment?: No Last Intake: Intake Last Liquid Date 09/16/22 Last Liquid Time 17:00 Last Solid Date 09/16/22 Last Solid Time 17:00 Labs Last 48hrs: Short CBC 09/17/22 Range/Units 06:05 WBC 5.6 (4.0-10.0) 10^3/ uL Hgb 14.3 (11.7-16.6) g/dL Hct 43.2 (42.0-52.0) % MCV 93.5 (80-94) fl Plt Count 320 (130-400) 10^3/c mm Neut % (Auto) 40.9 % Neut # (Auto) 2.30 (1.8-7.7) 10^3/u L Vitals: Temperature 97.3 F L 09/17/22 05:58 Temperature Source Temporal Artery S can 09/17/22 05:58 Pulse Rate 75 09/17/22 05:58 Pulse Rhythm 09/17/22 06:00 Pulse Strength 3+ Normal 09/17/22 06:00 Respiratory Rate 18 09/17/22 05:58 Blood Pressure 126/85 09/17/22 05:58 Blood Pressure Jennifer n 98 09/17/22 05:58 Pulse Oximetry 98 09/17/22 05:58 Oxygen Delivery Me thod 09/17/22 06:00 Exam: Pre-Anes Outpt Exam: alert, oriented x 3, clear to auscultation bilaterally and regular rate & rhythm Cardiac Studies: No Data to Display
--- NOTE | 2022-09-17 07:02 | W.PM.OPSUD ---
Surgery/Procedure H&P Update DATE OF PROCEDURE: September 17, 2022 DATE H&P PERFORMED: 08/21/22 H&P UPDATE INFORMATION: I have reviewed H&P completed within last 30 days, I have examined patient prior to procedure and No changes to prior documentation PREOP DIAGNOSIS: cervical radiculopathy PLANNED PROCEDURE: Operation Date: 09/17/22 07:00 Proposed Procedures s Cervical Decompression C5-7 45959, 88402, 41346, 62483,66933, M54.12(Not Applicable) - Michael Quintanilla DO p Cervical Posterior Fusion C4-7(Not Applicable) - Michael Quintanilla,
[2022-09-17] MEDS: ceFAZolin 2,000 MG in sodium chloride 0.9% (plus) 50 ML 100 MG IV ×3 (07:06→23:23)
[2022-09-17] MEDS: vancomycin 1,000 MG SDV 1000 MG XX (07:47)
--- NOTE | 2022-09-17 08:00 | SUR.OPER ---
Called and notified her of surgical start.
--- NOTE | 2022-09-17 09:03 | XR_ITS ---
WS: [id number] XR cervical spine 1Vport [id number] REASON FOR EXAM: OR PICS FINDINGS: Posterior instrumentation of the cervical and thoracic spine, cervical spine at C4-C5 with the inferi or most extent of the instrumentation in the lower cervical and upper thoracic region not well demons trated. Previous anterior plate and screw fixation with interbody fusion devices at C5-C7. XR/XR cervical spine 1Vport [id number] IMPRESSION: Posterior instrumentation of the lower cervical and upper thoracic spine as abo ve.
--- NOTE | 2022-09-17 09:59 | PM.OP ---
Operative Report Date of procedure: September 17, 2022 Pre-op diagnosis: Preop Diagnosis cervical radiculopathy Post-op diagnosis: same Procedure done: 1. C4-C7 Posterior spine fusion 2. C4-C7 posterior spine fusion 3. C5/6 laminectomy with partial facetectomy 4. C6/7 laminectomy with partial facetectomy 5. Use of autograft 6. Use of allograft Surgeon: Michael Quintanilla Building Maintenance Engineer: Rafael Molina Building Maintenance Engineer: The certified surgical technologist, Rafael Molina, TIERRA was needed for his expertise under the microscope. He was important and necessary throughout the procedure to complete in a safe and timely manner. He assisted with patient positioning prepping and draping tissue retraction suctioning of the operative field protection of the dural sac and tissue closure Estimated blood loss (mL): 150 Procedure: 1. C4-C7 Posterior spine fusion 2. C4-C7 posterior spine fusion 3. C5/6 laminectomy with partial facetectomy 4. C6/7 laminectomy with partial facetectomy 5. Use of autograft 6. Use of allograft Patient is brought to the operative suite after undergoing anesthesia was positioned in the prone position. All areas impingement well-padded. Patient was prepped and draped in normal sterile fashion. Skin incision was made over the posterior aspect of the cervical spine over the C4-C7 levels. There was used dissect down to the cervical fascia. Cervical fascia was split over the spinous processes. Subperiosteal dissection was made at the lateral masses of C4 bilaterally C5 bilaterally C6 bilaterally and C7 bilaterally. Next attention was brought to placing the lateral mass screws. The lateral mass was replaced at C4 bilaterally, C5 bilaterally, C6 bilaterally, and C7 bilaterally. Technique for placing the history as well as using the high-speed bur, followed by the drill for the pedicle screws measured at 12. The pedicle feeler was then used to make sure there is no breaches and then pedicle screws were placed at C4-C5 and C6 and C7 bilaterally these are all sized 14 screws. These are Nucla screws. Next the rods were attached. Head turn was used to align the screws. The rods were attached bilaterally and the knots were used to lock down and they were torqued into position. Next laminectomies were performed at C7 C6 and C5. The laminectomies were done using the sono PET. Sono PET was used to cut through the lamina bilaterally. And then the ligamentum flavum was taken down and the spinous process was held with a rongeur and the complete laminectomy was performed. And then this curved curette was used to undermine to remove the lamina along with the ligamentum flavum bilaterally at the C6-7 level in the C5-6 level. Removing the complete laminectomies of C7, C6, and C5. Once laminectomy was performed all 3 levels. Attempt was brought more to the left side to perform the partial facetectomies and foraminotomies. This was done using the [place] rongeur into the foramen to ensure that the nerve root was completely freed up. Once is completed at the C4-5 C5-6 C6-7 levels the nerves are felt to be adequately decompressed. Next attention was brought to decorticating the lamina from C4-C5 and C6 and C7 bilaterally. Bone chips from the lamina were then packed into the lateral gutters along with osteo amp allograft. Next attention was brought to closing the wound. Vancomycin powder was placed followed by deep drain and then the wound was closed in a layered fashion with 0 Vicryl 2-0 Vicryl and Monocryl suture. Sterile dressings were applied and patient was transferred to the PACU in stable condition.
[2022-09-17] MEDS: lactated ringers 1,000 ML 90 ML IV (12:14)
[2022-09-17] MEDS: venlafaxine 75 mg Tablet 37.5 MG PO (12:19)
[2022-09-17] MEDS: HYDROcodone-acetaminophen 10-325 mg Tablet PO ×3 (12:19→23:30)
--- NOTE | 2022-09-17 13:15 | ANE.PACU2 ---
Inpatient post-anesthesia follow up: Airway intact: Yes Vital signs: Temperature 97.7 F Pulse Rate 71 Respiratory Rate 17 Blood Pressure 133/87 Pulse Oximetry 96 Oxygen Delivery Me thod Room Air Oxygen Flow Rate 6 Fraction of Inspir ed Oxygen Hydration adequate: Yes Nausea and vomiting: No Pain level: 1 Mental status: Baseline
[2022-09-17] MEDS: docusate sodium 100 mg Capsule PO (17:50)
[2022-09-17] MEDS: morphine 4 mg/mL SDV 1 mL 2 MG IVP ×2 (17:52→20:42)
[2022-09-17] MEDS: cyclobenzaprine 10 mg Tablet PO (18:59)
[2022-09-18 02:13] VITALS: RESP 15
[2022-09-18] MEDS: morphine 4 mg/mL SDV 1 mL 2 MG IVP (02:13)
[2022-09-18 04:00] VITALS: BP 104/69; PULSE 79; RESP 17; TEMP 36.7; O2SAT 95
[2022-09-18] MEDS: lactated ringers 1,000 ML 90 ML IV (04:52)
[2022-09-18] MEDS: HYDROcodone-acetaminophen 10-325 mg Tablet PO ×2 (04:55→10:00)
[2022-09-18 06:00] VITALS: BP 119/80; PULSE 78; RESP 18; TEMP 36.5; O2SAT 95
[2022-09-18] MEDS: ceFAZolin 2,000 MG in sodium chloride 0.9% (plus) 50 ML 100 MG IV (06:10)
--- NOTE | 2022-09-18 07:34 | PM.PN ---
Subjective Subjective: POD 1 Patient reports weakness in right shoulder with trying to lift right arm. Denies shortness of breath, chest pain, headaches. Family is present. Vitals/I&O/Wt Last Vital Signs Temp 98.1 F 09/18/22 04:00 Pulse 79 09/18/22 04:00 Resp 17 09/18/22 04:00 BP 104/69 09/18/22 04:00 Pulse Ox 95 09/18/22 04:00 O2 Del Method 09/18/22 04:00 O2 Flow Rate 6 09/17/22 09:33 09/17/22 09/18/22 09/18/22 22:59 06:59 14:59 Intake Total 290 / 1026 1050 / 2076 50 / 50 Output Total 1105 / 1380 1350 / 2730 Balance -815 / -354 -300 / -654 50 / 50 Weight last 48 hrs Weight 160 lb Physical Exam Narrative: Patient is alert and oriented x3 with a good general appearance normal mood and affect. Moderately tender with palpation about the incisional site with Hemovac intact. Incision appears to be lean and dry without signs of erythema or drainage. 4/5 strength with right shoulder abduction and flexion. Appears to fire in all motor groups with 5/5 strength in all other motor groups in left upper extremity. Hands are warm good cap refill in all digits. Normal sensation to light touch in all dermatomal areas. Urinary Catheter Management: [place]: Cath Placed During This Visit: yes Reason for Continuing Indwelling Catheter: Perioperative Use in Selected Surgeries Urinary Catheter Date of Insertion: 09/17/22 Urinary Catheter Time of Insertion: 07:30 Data 09/17/22 06:05 A&P Assessment and plan (1) Status post cervical spinal fusion: Physical therapy to evaluate and mobilize. We will need a walker for home. Discontinue Hemovac drain and [place]razas catheter. We will work for discharge home today encourage incentive spirometry at home. We will see him back in the office in 1 week's time for wound check. Attestations Medical Necessity Statement*: DC home later this morning Coding Level of Care Code Acute Code for Chg Fwd Diagnoses Status post cervical spinal fusion Z98.1
[2022-09-18] MEDS: docusate sodium 100 mg Capsule PO (08:29)
--- NOTE | 2022-09-18 09:14 | PC.NURSE ---
pulled drain and removed flowers catheter this am. Patient tolerated well.
[2022-09-18 10:04] VITALS: PULSE 78; RESP 18; O2SAT 95
--- NOTE | 2022-09-18 10:13 | PC.CHAP ---
Pastoral Care Encounter/Spiritual Assessment Type of Contact [] Declined cocoa bean cleaner visit [] Patient/Family/Request visit [] Outpatient visit [] Follow-up visit [] Physician referral [] Code/Alert [x] Routine visit [] Staff referral [] Actively dying [] Patient sleeping [x] Family support [] [] Out of room [] Palliative care [] [] Receiving care in room [] Pre-surgical visit [] Trauma [] Long length of stay [] ICU visit [] Other: Relational/Emotional Strength [x] Patient feels connected with others/family/visitors/staff [] Distress [] Loneliness/isolation [] Abandonment Spirituality of Patient [x] Person of Caprice [] Attends Restoration of their Caprice [] Believes in Prayer [] Reads Bible or Latter Day materials [] There are Spiritual issues to be addressed Soldering Machine Feeder Interventions [x] Prayer [x] Active listening [] Non-anxious presence [x] Spiritual/emotional support [] Crisis/trauma care [] Spiritual counseling [] Bereavement support [] Provided bereavement packet [] Provided Bible/devotional materials [] Provided toy/stuffed animal, coloring book to patient or family member [] Provided Communion [] Anointing/Leo [] Salvation [x] Completed spiritual assessment [] Other: Impact on Illness or Injury [] Angry [] Fearful [] Anxious [] Often cries [] Exhaustion [] Unable to work [] Unable to attend buddhism [] Unable to walk/stand [] Unable to read [] Unable to drive [] Unable to eat/drink [] Unable to sleep [] Unable to be with family [] Patient intubated [] Other: Summary Time spent with patient 5 min
--- NOTE | 2022-09-18 11:13 | PC.NURSE ---
Discussed discharge, new medications, activities, held medications and follow up appointments with patient and spouse. Verbalized understanding
[2022-09-18 11:23] VITALS: PULSE 78; RESP 18; O2SAT 95
== END 2022-09-18 11:23 | disposition home or self-care (01) | DRG 30 ==
LOC: MEDSURG 09:59
PROVIDERS: Anesthesiology; Admitting Provider Orthopaedic Surgery; PCP Emergency Medicine Emergency Medical Services; Visit Provider Orthopaedic Surgery
PROC: 0RG2071 Fusion of 2 or more Cervical Vertebral Joints with Autologous Tissue Substitute, Posterior Approach, Posterior Column, Open Approach (ICD-10-PCS; CPT 63001; principal; 2022-09-17 07:00)
PROC: 0RG2071 Fusion of 2 or more Cervical Vertebral Joints with Autologous Tissue Substitute, Posterior Approach, Posterior Column, Open Approach (ICD-10-PCS; CPT 22600; 2022-09-17 07:00)
DX: M54.12 Radiculopathy, cervical region (principal); Z98.1 Arthrodesis status
CPT/HCPCS: 36415; 51702; 72020; 76000; 85025; 86850; 86900; 97110; 97161; C1713; C9359; J0690; J1100; J1200; J2250; J2270; J2370; J2405; J2704; J2710; J3010; J3370; J3490; J7030; J7120

== ENCOUNTER → 2022-09-25 11:12 | Outpatient (BNVA) | payer OTHER, SELFPAY | PROVIDERS: PCP Emergency Medicine Emergency Medical Services; Visit Provider Physician Assistant | DX: Z98.1 Arthrodesis status (principal); M25.511 Pain in right shoulder | CPT/HCPCS: 72040; 73030; 99024 ==

== ENCOUNTER 2022-10-01 07:54 | Outpatient (CLI) | payer OTHER, SELFPAY ==
--- NOTE | 2022-10-01 08:45 | CT_ITS ---
WS: [id number] CT NECK TECHNIQUE: Noncontrast CT of the neck with coronal and sagittal reformatted images. Exam performed as noncontrast neck CT per order CLINICAL INFORMATION: hardware check COMPARISON: MRI July 26, 2022 DLP: 181.[address] scans at [facility] use at least one of these dose optimization techniques: automated e xposure control; mA and/or kV adjustment per patient size (includes targeted exams where dose is matc hed to clinical indication); or iterative reconstruction. FINDINGS: Straightening with slight reversal normal cervical lordosis. Slight anterolisthesis C2 on C3 and C3 o n C4 which appears unchanged. ACDF C5-C7. Posterior fusion at C4-C7. Hardware appears intact. Immatur e posterior lateral bone graft material. C2-C3: Moderate RIGHT and no significant LEFT foraminal narrowing. Moderate facet arthropathy. Spinal canal is patent. C3-C4: Slight anterolisthesis. Moderate LEFT greater than RIGHT bony foraminal narrowing. Moderate fa cet arthropathy. Mild central canal stenosis. C4-C5: Mild bilateral bony foraminal narrowing. Moderate facet arthropathy. Decompressive laminectomi es. Spinal canal is patent. C5-C6: Mild bilateral bony foraminal narrowing. Spinal canal is patent. C6-C7: Moderate bilateral bony foraminal narrowing. Spinal canal is patent. Uncovertebral joint hyper trophy. C7-T1: Spinal canal and foramen are patent. Visualized posterior nasopharynx: Normal. Prevertebral soft tissues: Normal. Mild RIGHT T1-T2 bony foraminal narrowing. Lung apices are well aerated. Mastoid air cells are well aerated. Normal posterior nasopharynx. No ce rvical lymphadenopathy. Expected postoperative fluid/seroma in the laminectomy defects. CT/CT neck wo con [id number] IMPRESSION: 1. Fusion appears stable. No evidence of hardware loosening. Spinal canal has been decompressed. 2. Postoperative fluid/seroma in the laminectomy defects. No significant centr al canal stenosis. 3. Mild central canal stenosis C3-C4. Slight anterolisthesis C2 on C3 and C3 o n C4 is unchanged. 4. Moderate RIGHT C2-C3, LEFT C3-C4 and bilateral C6-C7 bony foraminal narrowi ng
== END 2022-10-01 07:55 | disposition home or self-care (01) ==
PROVIDERS: PCP Emergency Medicine Emergency Medical Services; Visit Provider Physician Assistant
DX: Z98.890 Other specified postprocedural states (principal); M48.02 Spinal stenosis, cervical region; Z98.1 Arthrodesis status
CPT/HCPCS: 70490

== ENCOUNTER → 2022-10-02 09:25 | Outpatient (BNVA) | payer OTHER, SELFPAY | PROVIDERS: PCP Emergency Medicine Emergency Medical Services; Visit Provider Physician Assistant | DX: M25.511 Pain in right shoulder (principal); Z98.1 Arthrodesis status; M54.12 Radiculopathy, cervical region | CPT/HCPCS: 20610; 72040; 99213; J1100; J2795 ==

== ENCOUNTER → 2022-11-06 08:07 | Outpatient (BNVA) | payer OTHER, SELFPAY | PROVIDERS: PCP Emergency Medicine Emergency Medical Services; Visit Provider Physician Assistant | DX: Z98.1 Arthrodesis status (principal); M25.511 Pain in right shoulder; M25.512 Pain in left shoulder | CPT/HCPCS: 72040; 99024 ==

== ENCOUNTER → 2023-02-14 09:28 | Outpatient (BNVA) | payer OTHER, SELFPAY | PROVIDERS: PCP Emergency Medicine Emergency Medical Services; Visit Provider Physician Assistant | DX: Z98.1 Arthrodesis status (principal) | CPT/HCPCS: 72040; 99213 ==

== ENCOUNTER 2023-02-28 10:38 | Emergency (ER) | payer OTHER, SELFPAY ==
[2023-02-28 10:39] VITALS: BP 111/76; PULSE 78; RESP 15; TEMP 36.7; O2SAT 99
--- NOTE | 2023-02-28 12:24 | USCV_ITS ---
Lawrence Galicia Age: 47 Gender: M : 1975 Exam Date: 02/28/2023 12:35 Ordering Phys: Toy Marshall Technologist: Nick Hwang Exam Location: [facility] [place] Indication: lt arm pain and swelling PROCEDURES: Venous duplex imaging was performed in only the left upper extremity. The following venous structures were evaluated: internal jugular vein, subclavian vein, axillary vein, and brachial veins. In addition, the basilic vein, cephalic vein, radial vein, and ulnar vein. FINDINGS: No evidence of deep vein thrombosis or superficial thrombophlebitis in the left upper extremity. The veins of the left upper extremity are readily compressible with normal venous flow dynamics including spontaneous flow, respiratory phasic variation and augmentation. CONCLUSIONS No evidence of thrombus of the left upper extremity veins. Bright Shepherd MD (Electronically Signed) Final Date: 28 February 2023 14:53 S
--- NOTE | 2023-02-28 12:24 | XR_ITS ---
WS: [id number] Exam: XR elbow LT min 3V* [id number] Date/Time of Exam: 02/28/2023 12:27 PM Reason For Exam: swelling and pain, no injury No fracture or dislocation noted. Posterior soft tissue swelling along the proximal ulna. No joint ef fusion. XR/XR elbow LT min 3V* [id number] IMPRESSION: 1. Posterior soft tissue swelling. No fracture or other significant finding.
--- NOTE | 2023-02-28 12:25 | ED_ITS ---
HPI - Skin/Abscess/Foreign Bdy General: Chief complaint: Skin/Abscess/Foreign Body Stated complaint: spider bite, left elbow Time Seen by Provider: 02/28/23 11:48 History of Present Illness: Patient is a 47-year-old male who comes to the ED with pain and swelling of the left elbow. Patient says approximately 3 days ago he had a spider bite to posterior aspect of left elbow. Started as a small little bite emely. Patient says he has had brown recluse bites before in the past and this seems similar. Over the past 3 days he is started developing swelling, redness and pain in his left elbow. Small bite emely has opened up a and has had a little clear and purulent drainage. Associated symptoms: Deny chills, fever(s), nausea or vomiting Review of Systems Const: Denies: fever(s), chills or fatigue Eyes: Denies: change in vision or eye discomfort ENMT: Denies: throat pain, odynophagia, nasal discharge or nasal congestion Card: Denies: chest pain, palpitations, edema, swelling of feet/ankles, dyspnea on exertion or orthopnea Resp: Denies: dyspnea, productive cough or non-productive cough GI: Denies: abdominal pain, nausea, vomiting, diarrhea, constipation or hematochezia : Denies: flank pain, difficulty urinating, dysuria or hematuria Musc: Reports: extremity pain (Left elbow) and extremity swelling (Left elbow); Denies: neck pain or back pain Skin/Breast: Reports: new lesions (Spider bite to posterior aspect of left thumb); Denies: rash Neuro: Denies: headache(s), numbness in extremities or weakness in extremities [facility] ED PFSH: Medical History (Updated 03/01/23 @ 07:43 by PARDEEP Grande) No pertinent family history Surgical History History of cervical spinal surgery Social History Smoking and tobacco status: never smoked Alcohol intake: former Substance/Drug Use: never service: Yes status: Retired branch: [employer] Current occupational status: retired Physical Exam Const: COMMON NORMALS: patient oriented x3 HENMT: COMMON NORMALS: normocephalic HEAD & SCALP: normocephalic MOUTH: Normal oral and palatal mucosa present THROAT: posterior oropharynx normal and uvula midline Neck/C-Spine: COMMON NORMALS: supple GENERAL: Yes normal visual inspection Resp: COMMON NORMALS: normal respiratory effort, No retractions, No use of accessory muscles and clear to auscultation bilaterally AUSCULTATION: clear to auscultation bilaterally Cardio: COMMON NORMALS: regular rate, regular rhythm, S1 normal heart sound present, S2 normal heart sound present, No gallops present (Cardio), No clicks present (Cardio), No murmurs present (Cardio) and Peripheral pulses 2+ throughout RATE: regular rate RHYTHM: regular rhythm HEART SOUNDS: S1 normal heart sound present and S2 normal heart sound present PERIPHERAL PULSES: Peripheral pulses 2+ throughout GI: COMMON NORMALS: Normal to inspection, nondistended, normoactive bowel sounds present, Soft to palpation, non-tender and no masses PALPATION: Yes Soft to palpation : COMMON NORMALS: Yes no CVA tenderness BLADDER/KIDNEY EXAM: Yes no CVA tenderness Back/Pelvis: COMMON NORMALS: no CVA tenderness Extremity: NARRATIVE EXTREMITY EXAM: Left elbow shows small ulceration with surrounding erythema warmth and tenderness to the posterior aspect of elbow. No purulent drainage seen. Swelling throughout elbow. Full range of motion of elbow. Findings suggestive of cellulitis. Neuro: COMMON NORMALS: patient oriented x3 GAIT: Yes Normal gait present Course Vital Signs: Vital signs: Vital Signs Temperature 98.0 F 02/28/23 10:39 Pulse Rate 69 02/28/23 14:06 Respiratory Rate 17 02/28/23 14:06 Blood Pressure 109/71 02/28/23 14:06 Pulse Oximetry 99 02/28/23 14:06 Oxygen Delivery Me thod Room Air 02/28/23 10:39 MDM - Skin/Abscess/Foreign Bdy Medicial Decision Making Patient is a 47-year-old male who comes to the ED with pain and swelling of the left elbow. Patient says approximately 3 days ago he had a spider bite to posterior aspect of left elbow. Started as a small little bite emely. Patient says he has had brown recluse bites before in the past and this seems similar. Over the past 3 days he is started developing swelling, redness and pain in his left elbow. Small bite emely has opened up a and has had a little clear and pur ulent drainage. Vital stable. Left elbow shows small ulceration with surrounding erythema warmth and tenderness to the posterior aspect of elbow. No purulent drainage seen. Swelling throughout elbow. Full range of motion of elbow. Findings suggestive of cellulitis. X-ray of left elbow showed no acute fracture findings but noted some posterior soft tissue swelling. Ultrasound venous duplex showed no blood clots or DVTs. Patient was stable for discharge home and diagnosed with infected insect bite to left arm. He was discharged home with a prescription for Bactrim. Told to follow-up with his PCP within the next week for reevaluation. Return to ED precautions given. Patient understood and agreed with plan. Lab Data Radiology Impressions Elbow X-Ray 02/28/23 12:24 IMPRESSION: 1. Posterior soft tissue swelling. No fracture or other significant finding. Discharge Plan Discharge Patient Disposition: Home Clinical Impression: Insect bite of arm, left, infected Qualifiers: Encounter type: initial encounter Qualified Code(s): S40.862A - Insect bite (nonvenomous) of left upper arm, initial encounter Condition: Stable Prescriptions: New Bactrim DS 800-160 mg tablet 1 tab PO BID 10 Days Qty: 20 0RF No Action cyclobenzaprine 10 mg tablet 10 mg PO PRN venlafaxine 75 mg tablet 37.5 mg PO QID Rx Instructions: Take one half tablet by mouth four times a day with food. PO daily; promethazine 25 mg tablet 25 mg PO PRN PRN (Reason: Nausea) bupropion HCl 75 mg tablet 75 mg PO QID ibuprofen 800 mg tablet 800 mg PO TID Hold Instructions: Resume on 10/16/22. hydrocodone-acetaminophen [[place]] 5-325 mg tablet 1 tab PO Q8H PRN (Reason: Pain) (DME) Walking high ankle boot with metatarsal bar See Rx Instructions .Route .MEDSUPPLY Qty: 1 0RF Rx Instructions: As directed (DME) Bilateral Foot Orthoses See Rx Instructions .Route .MEDSUPPLY Qty: 1 0RF Rx Instructions: As directed silver sulfadiazine [Silvadene] 1 % cream 1 applic topical BID Qty: 50 2RF Rx Instructions: apply a 1.5 mm thickness (DME) Bone Growth Stimulator E0748 See Rx Instructions .Route .MEDSUPPLY Qty: 1 0RF Rx Instructions: As directed hydrocodone-acetaminophen 10-325 mg tablet 1 tab PO Q4H PRN (Reason: pain) 7 Days Qty: 40 0RF hydrocodone-acetaminophen 10-325 mg Tablet 1 - 2 tab PO Q4H PRN (Reason: Postop Pain) Qty: 40 0RF Discharge Orders: Discharge ED (Routine); Ordered 02/28/23 Ordered By: Toy Marshall Referrals: Sridhar Membreno DO [Primary Care Provider] - Discharge Diet: Regular Discharge Activity: Increase activity as tolerated Patient Instructions: Cellulitis (ED), Insect Bite or Sting (ED), Brown Recluse Spider Bite (ED) Activity Restrictions/Additional Instructions: Follow-up with medical provider as directed in the next 5 to 7 days for reevaluation. Take medications as prescribed. Return to the ER or your medical provider if condition worsens. Please read and understand discharge instructions. Thank you for choosing [facility] for your healthcare needs today. Please realize this is an emergency room and that we are providing you with a medical screening exam and this may not be complete and all inclusive of all the testing and or work up that you may need to determine your ailment or severity of your illness. It is very important that you follow up as instructed or that you return to the Emergency Department should you have concerns or if your condition changes or worsens in any way. Coding Level of Care Code ED Nitrogen Operator for Scarlett Reeves
[2023-02-28 14:06] VITALS: BP 109/71; PULSE 69; RESP 17; O2SAT 99
== END 2023-02-28 14:07 | disposition home or self-care (01) ==
PROVIDERS: Emergency Provider Physician Assistant; PCP Emergency Medicine Emergency Medical Services
DX: S40.862A Insect bite (nonvenomous) of left upper arm, initial encounter (principal); W57.XXXA Bitten or stung by nonvenomous insect and other nonvenomous arthropods, initial encounter; M79.602 Pain in left arm
CPT/HCPCS: 73080; 93971; 99284

== ENCOUNTER → 2023-04-03 08:43 | Outpatient (BNVA) | payer OTHER, SELFPAY | PROVIDERS: PCP Emergency Medicine Emergency Medical Services; Referring Provider Emergency Medicine Emergency Medical Services; Visit Provider Specialist | DX: M70.32 Other bursitis of elbow, left elbow | CPT/HCPCS: 73080; 99214 ==

== ENCOUNTER 2023-04-08 20:00 | Outpatient (CLI) | payer OTHER, SELFPAY | END 2023-04-08 20:01 | disposition home or self-care (01) | LOC: SLEEP 04-09 05:59 | PROVIDERS: PCP Emergency Medicine Emergency Medical Services; Visit Provider Emergency Medicine Emergency Medical Services | DX: G47.33 Obstructive sleep apnea (adult) (pediatric) (principal); G47.36 Sleep related hypoventilation in conditions classified elsewhere; R06.83 Snoring; R53.83 Other fatigue | CPT/HCPCS: 95810 ==

== ENCOUNTER 2023-07-24 20:00 | Outpatient (CLI) | payer OTHER, SELFPAY | END 2023-07-24 20:01 | disposition home or self-care (01) | LOC: SLEEP 07-25 06:05 | PROVIDERS: PCP Emergency Medicine Emergency Medical Services; Visit Provider Emergency Medicine Emergency Medical Services | DX: G47.33 Obstructive sleep apnea (adult) (pediatric) (principal) | CPT/HCPCS: 95811 ==

== ENCOUNTER → 2024-02-18 08:23 | Outpatient (BNVA) | payer OTHER, MEDICAID, SELFPAY | PROVIDERS: PCP Emergency Medicine Emergency Medical Services; Visit Provider Orthopaedic Surgery | DX: Z98.1 Arthrodesis status (principal); M54.2 Cervicalgia | CPT/HCPCS: 72040; 99213 ==

== ENCOUNTER → 2025-04-14 10:21 | Outpatient (BNVA) | payer OTHER, SELFPAY | PROVIDERS: PCP Emergency Medicine Emergency Medical Services; Visit Provider Student in an Organized Health Care Education/Training Program | DX: M25.561 Pain in right knee (principal); M25.361 Other instability, right knee; M23.306 Other meniscus derangements, unspecified meniscus, right knee; M25.569 Pain in unspecified knee | CPT/HCPCS: 73560; 73565 ==

== ENCOUNTER 2025-04-14 13:50 | Outpatient (CLI) | payer OTHER, SELFPAY | END 2025-04-14 13:51 | disposition home or self-care (01) | LOC: SPT 13:51 | PROVIDERS: PCP Emergency Medicine Emergency Medical Services; Visit Provider Student in an Organized Health Care Education/Training Program | DX: Z46.89 Encounter for fitting and adjustment of other specified devices (principal); M25.361 Other instability, right knee; G89.29 Other chronic pain | CPT/HCPCS: L1812 ==

== ENCOUNTER 2025-04-28 15:46 | Outpatient (CLI) | payer OTHER, SELFPAY ==
--- NOTE | 2025-04-28 16:00 | MR_ITS ---
WS: [id number] MRI RIGHT KNEE NONCONTRAST TECHNIQUE: Axial PD, coronal PD fat sat, coronal PD, sagittal PD, and sagittal PD fat-sat images obtained. CLINICAL INFORMATION: right knee pain/patellar instability/hyper mobility COMPARISON: None. FINDINGS: Distal quadriceps and patella tendons are intact. Normal ACL and PCL. Moderate tricompartment arthritis. Tiny suprapatellar effusion. Normal lateral meniscus. Chronic thinning of the medial meniscus with horizontal tear peripherally extending to the articular surface. Some of this may be due to prior surgery. Recommend correlation with clinical history. Peripheral extrusion of the medial meniscus. Narrowing of the medial joint compartment. Parameniscal cysts along the medial meniscus and extending along the medial joint line. Grade II chondromalacia patella. Somewhat shallow trochlear groove. Medial and lateral patellar retinacula appear intact. Normal popliteal fossa. Normal lateral collateral ligament. Normal medial collateral ligament. MR/MR knee RT wo con* [id number] IMPRESSION: 1. Moderate tricompartmental arthritis worse in the medial joint compartment. 2. ACL and PCL appear intact. 3. Chronic appearing horizontal tear involving the medial meniscus with blunti ng of the anterior and posterior horns and associated parameniscal cysts along the medial joint line. Recommend correlation with prior surgery. 4. Grade II chondromalacia patella. No dislocation. Somewhat shallow trochlear groove. Recommend correlation for patellar instability. Outbridge grading: grade II: blister-like swelling/fraying of articular cartila ge extending to surface
== END 2025-04-28 15:47 | disposition home or self-care (01) ==
LOC: RAD 15:49
PROVIDERS: PCP Family Medicine Geriatric Medicine; Visit Provider Student in an Organized Health Care Education/Training Program
DX: M25.561 Pain in right knee (principal); M25.361 Other instability, right knee; M22.41 Chondromalacia patellae, right knee; M13.861 Other specified arthritis, right knee
CPT/HCPCS: 73721

== ENCOUNTER → 2025-05-19 13:29 | Outpatient (BNVA) | payer OTHER, SELFPAY | PROVIDERS: PCP Family Medicine Geriatric Medicine; Visit Provider Student in an Organized Health Care Education/Training Program | DX: M23.306 Other meniscus derangements, unspecified meniscus, right knee (principal); M94.261 Chondromalacia, right knee; M25.361 Other instability, right knee | CPT/HCPCS: 99214 ==

== ENCOUNTER 2025-06-24 08:39 | Day surgery (SDC) | payer OTHER, SELFPAY ==
[2025-06-24] VITALS (10 sets, daily range): BP systolic 104–149; BP diastolic 65–100; PULSE 72–96; RESP 15–18; TEMP 36.2–36.3; O2SAT 96–97; BMI 22.1
[2025-06-24] MEDS: acetaminophen 1,000 MG/100 ML PIGGYBACK 400 MG IV (09:03)
--- NOTE | 2025-06-24 09:24 | W.PM.OPSFHP ---
Same Day Surgery H&P Indication for Procedure/HPI DATE OF PROCEDURE: June 24, 2025 CHIEF COMPLAINT/INDICATIONFOR SURGICAL PROCEDURE: Right knee medial meniscus tear, chondromalacia PREOP DIAGNOSIS: Right knee medial meniscus tear, chondromalacia PLANNED PROCEDURE: Operation Date: 06/24/25 10:10 Proposed Procedures p RIGHT Knee D&A w/ Partial Medial Meniscectomy vs Repair and Chondroplasty(Right) - Fabian Marshall DO Medications/Allergies* Home Medications ?Medication ?Instructions ?Recorded ?Confirmed ?Type bupropion HCl 75 mg tablet 75 mg PO QID 08/25/19 06/24/25 History ibuprofen 800 mg tablet 800 mg PO TID 08/25/19 06/23/25 History Held on 09/18/22. Instructions: Resume on 10/16/22. venlafaxine 75 mg tablet 37.5 mg PO QID 11/28/20 06/24/25 History hydrocodone 5 mg-acetaminophen 325 1 tab PO QID 06/23/25 06/24/25 History mg tablet Allergies/Adverse Reactions Allergy/AdvReac Type Severity Reaction Status Date / Time fluticasone (From Flonase) Allergy burning Verified 06/23/25 10:33 ketorolac Allergy non-effective, Verified 06/23/25 10:33 nausea oxycodone (From Percocet) Allergy nausea Verified 06/23/25 10:33 pravastatin Allergy unknown Verified 06/23/25 10:33 tramadol Allergy non-effective, Verified 06/23/25 10:33 irritable, nausea Pertinent History/Comorbid Conditions* Medical History (Updated 05/23/25 @ 21:38 by Fabian Marshall DO) No pertinent family history Surgical History (Updated 09/18/22 @ 07:37 by Rafael Molina PA-C) History of cervical spinal surgery Social History Smoking and tobacco/nicotine status: former use of tobacco/nicotine Alcohol intake: former Substance/Drug Use: never service: Yes status: Retired branch: [employer] Current occupational status: retired Pertinent Exam Findings alert, oriented x 3, operative site marked and procedure specific exam findings Please refer to anesthesia preoperative evaluation for heart and lung findings Please refer to detailed orthopedic examination on 05/19/2025 listed below: Right Knee Exam: -Full knee range of motion -Pain with Dayana's examination -Hyper mobility of patella?3+ translation patella -Medial joint line tenderness to palpation -Lateral joint line tenderness to palpation -Mild palpable joint effusion -Mild crepitus on patella range of motion -No significant difficult clinical malalignment appreciated Recommendations Risks and benefits of procedure reviewed and Patient/family agree to proceed Surgery/Procedure today Other Plans: Plan to proceed to the OR today for right knee diagnostic and surgical arthroscopy with partial medial meniscectomy versus repair and chondroplasty. Patient once again understands Anzemet's procedure the risk benefits complication alternative surgical nonsurgical treatment options. Understanding risk of surgery patient elects proceed with surgical invention. All questions answered at this time. Will plan to proceed to the OR today. Coding Level of Care Code Acute Code for g Fwalejandro
--- NOTE | 2025-06-24 09:54 | ANES.PREANE2 ---
Pre-Anesthetic Assessment Height/Weight: Height 1.75 m Weight 68.039 kg Temp Pulse Resp BP Pulse Ox O2 Del Method 97.4 F L 87 18 126/91 97 Room Air 06/24/25 08:59 06/24/25 08:59 06/24/25 08:59 06/24/25 08:59 06/24/25 08:59 06/24/25 08:59 Preop Diagnosis: Right knee medial meniscus tear, chondromalacia Operation Date: 06/24/25 10:10 Proposed Procedures p RIGHT Knee D&A w/ Partial Medial Meniscectomy vs Repair and Chondroplasty(Right) - Fabian Marshall DO Familial anesthetic complications: None Was Beta Gerald taken within 24 hours: N/A Was Clonidine taken within 24 hours: N/A Last intake: Intake Last Liquid Date 06/23/25 Last Liquid Time 22:00 Last Solid Date 06/23/25 Last Solid Time 19:00 Social No alcohol and No tobacco Exam alert, oriented x 3, clear to auscultation bilaterally and regular rate & rhythm Airway Mallampati: Class II Dentition: chipped Anesthetic Plan ASA status: 2 Anesthesia: General Risk of > 500 ml blood loss (7ml/kg in children): No Medications/Allergies Home Medications ?Medication ?Instructions ?Recorded ?Confirmed ?Last Taken ?Type bupropion HCl 75 mg tablet 75 mg PO QID 08/25/19 06/24/25 06/24/25 History ibuprofen 800 mg tablet 800 mg PO TID 08/25/19 06/23/25 06/23/25 History Held on 09/18/22. Instructions: Resume on 10/16/22. Bilateral Foot Orthoses #1 ea 01/18/20 05/19/25 Unknown Rx venlafaxine 75 mg tablet 37.5 mg PO QID 11/28/20 06/24/25 06/24/25 History Bone Growth Stimulator [id number] #1 ea 09/18/22 05/19/25 Unknown Rx Right Knee Patellar Stabilizing #1 ea 04/14/25 05/19/25 Unknown Rx Brace hydrocodone 5 mg-acetaminophen 325 1 tab PO QID 06/23/25 06/24/25 06/24/25 History mg tablet Allergies Allergy/AdvReac Type Severity Reaction Status Date / Time fluticasone (From Flonase) Allergy burning Verified 11/12/25 10:33 ketorolac Allergy non-effective, Verified 06/23/25 10:33 nausea oxycodone (From Percocet) Allergy nausea Verified 06/23/25 10:33 pravastatin Allergy unknown Verified 06/23/25 10:33 tramadol Allergy non-effective, Verified 06/23/25 10:33 irritable, nausea PFSH Anesthesia Medical History (Updated 05/23/25 @ 21:38 by Fabian Marshall DO) No pertinent family history Surgical History History of cervical spinal surgery Social History Smoking and tobacco/nicotine status: former use of tobacco/nicotine Alcohol intake: former Substance/Drug Use: never service: Yes status: Retired branch: [employer] Current occupational status: retired
[2025-06-24] MEDS: ceFAZolin 2,000 MG in sodium chloride 0.9% (plus) 50 ML 100 MG IV (10:47)
[2025-06-24] MEDS: lidocaine-epi 2% PF 1:200,000 20 mL SDV 40 ML INJECTION (11:37)
--- NOTE | 2025-06-24 11:53 | P.BOP_ITS ---
Date of Procedure: 06/24/2025 Surgeon: Fabian Marshall DO Paper Plate Machine Tender(s): Toy Marshall PA-C Procedure(s) performed: Right knee diagnostic and surgical arthroscopy with partial medial meniscectomy Right knee diagnostic and surgical arthroscopy with medial and patellofemoral compartment chondroplasty Right knee diagnostic and surgical arthroscopy with extensive synovectomy (medial lateral patellofemoral compartments) Findings of the procedure(s): Underwent procedure as planned without issues or complication Estimated blood loss: 5 mL Specimen(s) removed: None Post-operative diagnosis: Right knee medial meniscus tear, extensive synovitis, medial and patellofemoral compartment chondromalacia
--- NOTE | 2025-06-24 11:54 | P.OP_ITS ---
Operative Report Date of procedure: June 24, 2025 Surgeon: Fabian Marshlal DO Catalog Librarian: Toy Marshall PA-C: PA was necessary for assistance in this case with leg positioning assistance and arthroscopic instrumentation, assisted wound closure and dressing application. 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pain.? Patient has failed conservative treatment who has been worked up for right??knee?pain in the out patient setting. MRI findings consistent with tear of the medial meniscus. talked in the office about treatment options patient would like to proceed with a right?knee?diagnostic and surgical arthroscopy with partial medial meniscectomy versus repair and chondroplasty.? Patient understand the ins and outs of the procedure the risk benefits complication alternatives to treatment options.? Understanding risk of surgery they agree to proceed with surgical intervention.? Patient understand this may not provide patient with complete symptomatic relief of? pain as patient does have some underlying arthritis.? Understanding this and patient agree to proceed with surgical intervention all questions answered. Procedure: Patient seen and evaluated in the preoperative holding area.? Consent was reviewed and signed with patient.? Correct extremity was then marked.? Patient seen evaluated Anesthesia Department once cleared for surgery patient was taken back to the operative suite.? Patient was transported onto the OR table in supine position.? All bony prominences well-padded patient was appropriate secured to the bed.? Once appropriately anesthetized a nonsterile tourniquet was applied to the right thigh.? The right lower extremity was then prepped and draped in?standard orthopedic fashion.? Final timeout performed.? Patient received appropriate preoperative antibiotics. Patient received local anesthetic of lidocaine with epinephrine into the joint as well as around the portal sites.? Esmarch tourniquet was used exsanguinate the right lower extremity and tourniquet was insufflated to 250 mmHg. A?standard 2 portal vertical incision diagnostic and surgical arthroscopy of the right?knee?was performed in?standard fashion.? Small stab incision made in the inferolateral portal introduced trocar and arthroscope into the suprapatellar pouch.? Suprapatellar pouch was subsequently visualized and found to have significant synovitis but no loose bodies.? Patient had noticeable significant inflamed infrapatellar fat pad and thickening hypertrophic within the patellofemoral compartment.? ?The medial gutter was free of loose bodies I then introduced the arthroscope into the medial compartment.? Within the medial compartment I then established my inferior medial working portal utilizing spinal needle outside in technique.? Once established I then visualized our articular cartilage of the medial compartment with a valgus stress.? 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 Next I inspected the meniscus.? With an arthroscopic probe was utilized to visual? all aspects of the meniscus.? Meniscal root was found to be intact.? Meniscus was found to be torn at the body to posterior horn junction.? I then subsequently introduced a basket forceps as well as arthroscopic shaver to perform a partial medial meniscectomy to stable meniscal tissue and then utilized a thermal wand to anneal the edges.? Next, I then performed a synovectomy of the medial compartment.? Given patient's chondromalacia there was areas of unstable articular cartilage and I subsequently performed a chondroplasty with arthroscopic shaver and thermal wan d.? This completed medial compartment work. Next a introduced the arthroscope to the intercondylar notch.? PCL and ACL were intact. patient had significant thickening of the infrapatellar fat pad spanning into the medial and lateral compartments.? I then performed an extensive synovectomy with the arthroscopic shaver of the patellofemoral medial and lateral compartments as well as the intercondylar notch. Advance the?scope into the retrocruciate space and no loose bodies were found. Next I introduced the arthroscope into the lateral compartment the lateral compartment was found to have grade 1 chondromalacia.? Lateral meniscus was found to be intact.? The root was intact.? Given the grade 1 chondromalacia there is no unstable cartilage pieces to perform chondroplasty.? This completed my work of the lateral compartment and then performed a synovectomy of the lateral compartment.? Next of the arthroscope was placed into the lateral gutter and this was free of loose bodies.? Finally I reintroduced the arthroscope into the patellofemoral compartment.? The patellofemoral was found to have grade 2 chondromalacia of the patellofemoral compartment.? This point in time I utilized thermal wand and arthroscopic shaver to perform chondroplasty of the patellofemoral space to stable articular tissue. At this point I utilized arthroscopic shaver as well as thermal wand to perform extensive synovectomy of the patellofemoral compartment. This completed my work of the patellofemoral space.? I then switch my portal sites to the medial working portal.? Completed the rest of my synovectomy and the rest of my examination arthroscopy was normal. All fluid was suctioned from the joint.? ?All instruments were withdrawn.? Portal sites were closed with interrupted nylon suture.? portal sites were then covered with with Xeroform 4 x 4's ABD Curlex and Nitin wrap.? Patient was then subsequently awakened from anesthesia and taken to PACU in stable condition. Disposition: Patient taken to PACU in stable condition recovering well.? Will receive appropriate discharge structure as well as pain medication postoperatively as well as? DVT prophylaxis.we will have patient follow-up with us in the office in 2 weeks.? We will weightbearing as tolerated to the right lower extremity.? Patient understands and agrees with current plan.? All questions answered.
--- NOTE | 2025-06-24 12:27 | PM.PACU ---
PACU note Narrative: Patient is a 49-year-old male who just underwent a right knee arthroscopy. Pt transferred to PACU in stable condition. Dressing is dry. pt is awake and alert. pt can wiggle toes and plantarflex and dorsiflex foot. pt able to perform straight leg raise, Femoral nerve intact. Distal pulses are palpable toes are warm and well-perfused. Cap refill is normal and under 2 seconds. Sensation to foot is intact. Pain is controlled. Exam: awake Disposition: discharged
--- NOTE | 2025-06-24 13:15 | ANE.PACU2 ---
Inpatient post-anesthesia follow up: Airway intact: Yes Vital signs: Temperature 97.3 F Pulse Rate 80 Respiratory Rate 16 Blood Pressure 112/75 Pulse Oximetry 97 Oxygen Delivery Me thod Room Air Oxygen Flow Rate Fraction of Inspir ed Oxygen Hydration adequate: Yes Nausea and vomiting: No Pain level: 1 Mental status: Baseline
== END 2025-06-24 13:14 | disposition home or self-care (01) ==
PROVIDERS: PCP Family Medicine Geriatric Medicine; Visit Provider Student in an Organized Health Care Education/Training Program
PROC: (CPT 29876; principal; 2025-06-24 10:10)
PROC: (CPT 29870; 2025-06-24 10:10)
DX: S83.241A Other tear of medial meniscus, current injury, right knee, initial encounter (principal); S83.91XA Sprain of unspecified site of right knee, initial encounter; X58.XXXA Exposure to other specified factors, initial encounter; M94.261 Chondromalacia, right knee; Z79.891 Long term (current) use of opiate analgesic; Z87.891 Personal history of nicotine dependence
CPT/HCPCS: 29876; 29881; E0114; J0131; J0690; J1100; J2250; J2405; J2704; J3010; J3490; J7030; J9999

== ENCOUNTER → 2025-07-13 09:52 | Outpatient (BNVA) | payer OTHER, SELFPAY | PROVIDERS: PCP Family Medicine Geriatric Medicine; Visit Provider Physician Assistant | DX: Z98.890 Other specified postprocedural states (principal) | CPT/HCPCS: 99024 ==